=== PATIENT | male | born 1990 | race Caucasian/White ===

== ENCOUNTER 2020-06-01 07:05 | Day surgery (SDC) | payer OTHER, SELFPAY ==
[2020-06-01] VITALS (31 sets, daily range): BP systolic 127–156; BP diastolic 66–109; PULSE 72–88; RESP 16–24; TEMP 36.2–36.7; O2SAT 92–100
--- NOTE | ~2020-06-01 | XR_ITS ---
EXAMINATION: XR retrograde pyelo w/stent LT DATE: 06/01/2020 14:28 INDICATION: Left ureteral stone. TECHNIQUE: 49 intraoperative fluoroscopic views of the abdomen and pelvis were obtained. I was not pr esent. Fluoroscopy exposure time was 236 seconds. COMPARISON: None. FINDINGS: The left-sided retrograde pyelogram demonstrates mild hydronephrosis. The final images demo nstrate a left internal ureteral stent in expected position. IMPRESSION: 1. Left internal ureteral stent in expected position. Reviewed, dictated and finalized at location B.
--- NOTE | ~2020-06-01 | XR_ITS ---
EXAMINATION: XR abdomen/kub 1V DATE: 06/01/2020 08:49 INDICATION: Left flank pain. TECHNIQUE: A supine view of the abdomen on 2 radiographs was obtained. COMPARISON: CT abdomen and pelvis 06/01/2020 FINDINGS: There are no dilated loops of bowel. There is no visible urolithiasis. IMPRESSION: 1. No visible urolithiasis. Reviewed, dictated and finalized at location B. IMPRESSION: 1. No visible urolithiasis.
--- NOTE | ~2020-06-01 | CT_ITS ---
EXAMINATION: CT abdomen pelvis wo con DATE: 06/01/2020 08:11 INDICATION: Left flank pain. TECHNIQUE: Computed tomography (CT) of the abdomen and pelvis was performed without intravenous contr ast. Automated exposure control and iterative reconstruction technique were employed. The dose-length product was 1602.34 mGy-cm. COMPARISON: None. FINDINGS: The visualized portions of the lung bases are clear without pneumonia or pleural effusion. The heart size is normal. No pericardial effusion. The liver and gallbladder are normal. There is mil d splenomegaly measuring 13.9 cm, likely secondary to obesity. The pancreas, adrenal glands, and righ t kidney are normal. There is mild left hydronephrosis. There is a 4 mm stone in proximal left ureter . There are no dilated loops of bowel. The appendix is normal. There are no pathologically enlarged l ymph nodes. There is no free intraperitoneal fluid. There is levoscoliosis of thoracolumbar spine and dextroscoliosis of thoracic spine. IMPRESSION: 1. 4 mm stone in proximal left ureter with mild left hydronephrosis. Reviewed, dictated and finalized at location B.
--- NOTE | 2020-06-01 07:23 | ED.BACK ---
HPI - Back Pain/Injury General Chief Complaint: Back Pain/Injury Stated Complaint: l lower back pain Time Seen by Provider: 06/01/20 07:11 Source: RN notes reviewed History of Present Illness HPI Narrative: Patient presents emergency department from home for left flank pain. Patient states pain began yesterday afternoon and radiates from the left flank into his left lateral side. The pain is described as sharp and stabbing. States that he makes pain better or worse. Associate with nausea vomiting this morning. Denies any previous history of kidney stones. Denies any fevers or chills abdominal pain diarrhea. States he took no pain medication this morning Related Data Home Medications Medication Instructions Recorded Confirmed No Home Medications 06/01/20 06/01/20 Allergies Allergy/AdvReac Type Severity Reaction Status Date / Time No Known Allergies Allergy Verified 06/01/20 07:15 Review of Systems Review of Systems: Narrative: Gen.: Denies fevers or chills ENT: Denies congestion Respiratory: Denies shortness of breath or cough CV: Denies chest pain or palpitations GI: See HPI denies burning, urgency, frequency or hematuria Musculoskeletal: Denies back pain or muscle pain Neuro: Denies numbness, tingling, weakness or focal weakness Skin: Denies rash Except as documented, all other systems reviewed and negative PMFSH Past Medical History Medical History Patient denies significant medical history Social History Social History Smoking status: Never smoker Gender identity (if verbalized by the patient): Male Exam Narrative: Exam Narrative: APPEARANCE: No acute distress, nontoxic, resting in bed EYES: EOMI HEENT: Normocephalic, atraumatic, OMM RESPIRATORY: No respiratory distress Clear to auscultation bilaterally with no rhonchi wheezing or rales. CARDIOVASCULAR: Regular rate and rhythm without murmurs rubs or gallops. ABDOMINAL: Soft, nontender, nondistended, no rebound or guarding tender to palpation left flank MUSCULOSKELETAl: Moves all extremities. No clubbing, cyanosis or edema. NEURO: Awake and alert. Following commands, speech normal, no focal deficits SKIN:: Warm, dry. No rashes lesions or abrasions PSYCHIATRIC: Normal affect/mood, Course Course Emergency Course: Called and discussed with Dr. Rivero will come evaluate patient in the ED Dr Rivero came to the ED i and plans s take patient to the OR at this time Discussed with patient and family results of workup and diagnosis. Discussed need for admission. Patient and family understand and agree to current treatment plan Vital Signs Vital signs: Vital Signs Temperature 97.5 F L 06/01/20 07:16 Pulse Rate 86 06/01/20 07:16 Respiratory Rate 16 06/01/20 07:16 Blood Pressure 152/103 H 06/01/20 07:16 Pulse Oximetry 98 06/01/20 07:16 Temperature 97.5 F L 06/01/20 07:16 Pulse Rate 86 06/01/20 07:16 Respiratory Rate 16 06/01/20 07:16 Blood Pressure 140/73 06/01/20 11:01 Pulse Oximetry 96 06/01/20 11:01 MDM - Back Pain/Injury Lab Data Result diagrams: 06/01/20 07:29 06/01/20 07:29 Labs: Lab Results 06/01/20 06/01/20 06/01/20 Range/Units 07:29 07:29 07:29 WBC 10.4 H (4.5-10.0) K/mm3 RBC 4.47 L (4.6-6.20) M/mm3 Hgb 13.6 L (14.0-18.0) g/dL Hct 41.2 L (42.0-52.0) % MCV 92.2 (80-100) fl MCH 30.4 (26-34) pg MCHC 33.0 (32-36) g/dl RDW 13.3 (11.5-14.5) % Plt Count 358 (150-375) k/mm3 MPV 10.3 (7.4-10.4) fl Immature Gran % (Auto) 0.3 (0-0.5) % Neut % (Auto) 57.5 (45.5-73.1) % Lymph % (Auto) 33.5 (18.3-44.2) % [place] % (Auto) 6.6 (2.6-8.5) % Eos % (Auto) 1.2 (0-4.4) % Baso % (Auto) 0.9 (0.2-1.2) % Lymph # (Auto) 3.49 H (0.9-3.2) K/mm3 [place] # (Auto) 0.7 H (0.1-0.6) K/mm3 Eos # (Au
[2020-06-01 07:37] LABS: Basophils Absolute Auto 0.1 K/mm3 (0.0-0.1); Basophils Percent Auto 0.9 % (0.2-1.2); Eosinophils Absolute Auto 0.1 K/mm3 (0-0.3); Eosinophils Percent Auto 1.2 % (0-4.4); Hematocrit 41.2 % (42.0-52.0); Hemoglobin 13.6 g/dL (14.0-18.0); Immature Granulocyte Absolute 0.03 K/mm3 (0.00-0.031); Immature Granulocyte Percent A 0.3 % (0-0.5); Lymphocytes Absolute Auto 3.49 K/mm3 (0.9-3.2); Lymphocytes Percent Auto 33.5 % (18.3-44.2); Mean Corpuscular Hemoglobin 30.4 pg (26-34); Mean Corpuscular Volume 92.2 fl (80-100); Mean Platelet Volume 10.3 fl (7.4-10.4); Monocytes Absolute Auto 0.7 K/mm3 (0.1-0.6); Monocytes Percent Auto 6.6 % (2.6-8.5); Neutrophils Percent Auto 57.5 % (45.5-73.1); Platelet Count Result 358 k/mm3 (150-375); Red Blood Count 4.47 M/mm3 (4.6-6.20); Red Cell Distribution Width 13.3 % (11.5-14.5); White Blood Count 10.4 K/mm3 (4.5-10.0)
[2020-06-01 07:41] LABS: Add Urine Microscopic? YES; Appearance Urine Cloudy (Clear); Bilirubin Urine Negative (Negative); Blood Urine 3+ (Negative); Calcium Oxalate Crystals Urine Present /hpf; Color Urine Yellow (Yellow); Glucose Urine UA Negative (Negative); Ketones Urine Negative (Negative); Leukocyte Esterase Ur Negative LEU/UL (Negative); Mucus Urine Rare /lpf; Nitrate Urine Negative (Negative); Protein Urine 2+ mg/dL (Negative); RBC Urine >75 /hpf (0-2); Specific Grav Ur 1.029 (1.001-1.035); Squamous Epithelial Cell Urine Occasional /hpf (Few)
[2020-06-01] MEDS: ONDANSETRON INJ 4 MG/2 ML VIAL IV PUSH (07:43)
[2020-06-01] MEDS: SODIUM CHLORIDE 0.9% IV 1,000 ML 999 ML IV CONT (07:43)
[2020-06-01 07:48] LABS: Alanine Aminotransferase 20 U/L (4-50); Albumin Level 4.4 g/dL (3.5-5.1); Alkaline Phosphatase 80 U/L (38-126); Anion Gap 8 mmol/L (8-16); Aspartate Amino Transferase 22 U/L (17-59); Bilirubin,Total 0.4 mg/dL (0.2-1.3); Blood Urea Nitrogen 13 mg/dL (9-20); Calcium 9.1 mg/dL (8.4-10.2); Carbon Dioxide 25 mmol/L (22-30); Chloride 106 mmol/L (98-107); Estimated CRCL calculation 182 ml/min; Estimated Glomerular Filt Rate > 60; Glucose 115 mg/dL (75-110); Potassium 3.9 mmol/L (3.4-5.0); Sodium 139 mmol/L (137-145)
--- NOTE | 2020-06-01 08:45 | PC.NURSE ---
Pt returns to xray for a KUB film.
[2020-06-01] MEDS: MORPHINE SULFATE 4 MG/ML INJ IV PUSH (08:48)
--- NOTE | 2020-06-01 10:40 | PC.NURSE ---
Dr. Rivero at bedside for consultation.
--- NOTE | 2020-06-01 10:45 | P.HP_ITS ---
History of Present Illness History of Present Illness Consent: Risks, benefits, and alternatives have been discussed and questions answered. Patient agrees to proceed with procedure. Chief complaint: l lower back pain Narrative: Marciano Sapp is a 30 year old male Without prior significant urological history who presents to the ER with acute left renal colic. He has had, not only flank and abdominal pain, but also nausea and vomiting. Denies fevers chills or gross hematuria. CT imaging shows a noncalcified 4 mm obstructing left proximal ureteral stone Review of Systems Cardiovascular: Cardiovascular: Denies chest pain, Denies lightheadedness, Denies palpitations and Denies dyspnea Respiratory: Respiratory: Denies dyspnea Gastrointestinal: Gastrointestinal: Denies diarrhea, Denies nausea and Denies vomiting Genitourinary: Genitourinary: Denies hematuria and Denies dysuria Endocrine: Endocrine: Denies palpitations PMF Past Medical History Medical History Patient denies significant medical history Social History Social History Smoking status: Never smoker Gender identity (if verbalized by the patient): Male Meds Home Medications and Allergies Home Medications Medication Instructions Recorded Confirmed Type No Home Medications 06/01/20 06/01/20 History Allergies Allergy/AdvReac Type Severity Reaction Status Date / Time No Known Allergies Allergy Verified 06/01/20 07:15 Vital Signs Vital Signs - 24 hr 06/01/20 07:16 06/01/20 07:47 06/01/20 08:01 Temperature 97.5 F L Pulse Rate 86 Respiratory Rate 16 Blood Pressure 152/103 H 146/103 H 143/97 H Pulse Oximetry 98 97 99 06/01/20 08:27 06/01/20 08:31 06/01/20 08:48 Temperature Pulse Rate Respiratory Rate Blood Pressure 155/98 H 156/109 H 141/93 H Pulse Oximetry 99 100 98 06/01/20 09:01 Temperature Pulse Rate Respiratory Rate Blood Pressure 132/84 Pulse Oximetry 98 Exam Const: General: no acute distress Resp: Effort & Inspection: normal respiratory effort GI: Inspection: non-distended GI Palp: No abdominal tenderness and No Guarding due to palpation present (GI) Auscultation: normal bowel sounds Assessment and Plan Assessment and plan (1) Left ureteral stone: Code(s): N20.1 - Calculus of ureter Status: Acute Assessment and Plan: * Cystoscopy, left ureteroscopy with stone extraction, possible laser lithotripsy and stent placement.
--- NOTE | 2020-06-01 12:19 | PC.NURSE ---
Report to pre-op RN. States they have the consent printed for patient to sign and also will initiate the IV that was just ordered.
--- NOTE | 2020-06-01 12:46 | WPDANESEPPF ---
Anes - Initial Pre Proc Eval Procedure: Operation Date: 06/01/20 14:00 Proposed Procedures p CYSTOSCOPY,LEFT URETEROSCOPY,STONE EXTRACTION,POSSIBLE HOLMIUM LASER - Han Rivero MD Date/Time: 06/01/20 12:46 Surgeon: Han Rivero MD Pre Op Diagnosis: l lower back pain Patient Data Age: 30 Gender: M Height: 5 ft 10 in Weight: 159 kg Last Vital Signs Temp 36.7 C 06/01/20 12:38 Pulse 76 06/01/20 12:38 Resp 20 06/01/20 12:38 BP 135/71 06/01/20 12:38 Pulse Ox 97 06/01/20 12:38 Allergies Allergy/AdvReac Type Severity Reaction Status Date / Time No Known Allergies Allergy Verified 06/01/20 12:36 Home Medications Medication Instructions Recorded Confirmed Type No Home Medications 06/01/20 06/01/20 History Laboratory Tests 06/01/20 06/01/20 06/01/20 07:29 07:29 07:29 WBC 10.4 K/mm3 H K/mm3 (4.5-10.0) RBC 4.47 M/mm3 L M/mm3 (4.6-6.20) Hgb 13.6 g/dL L g/dL (14.0-18.0) Hct 41.2 % L % (42.0-52.0) MCV 92.2 fl fl (80-100) MCH 30.4 pg pg (26-34) MCHC 33.0 g/dl g/dl (32-36) RDW 13.3 % % (11.5-14.5) Plt Count 358 k/mm3 k/mm3 (150-375) MPV 10.3 fl fl (7.4-10.4) Immature Gran % (Auto) 0.3 % % (0-0.5) Neut % (Auto) 57.5 % % (45.5-73.1) Lymph % (Auto) 33.5 % % (18.3-44.2) [place] % (Auto) 6.6 % % (2.6-8.5) Eos % (Auto) 1.2 % % (0-4.4) Baso % (Auto) 0.9 % % (0.2-1.2) Lymph # (Auto) 3.49 K/mm3 H K/mm3 (0.9-3.2) [place] # (Auto) 0.7 K/mm3 H K/mm3 (0.1-0.6) Eos # (Auto) 0.1 K/mm3 K/mm3 (0-0.3) Baso # (Auto) 0.1 K/mm3 K/mm3 (0.0-0.1) Abs Immat Gran (auto) 0.03 K/mm3 K/mm3 (0.00-0.031) Absolute Neuts (auto) 6.0 K/mm3 K/mm3 (1.3-6.7) Absolute Nucleated RBC 0.0 K/mm3 K/mm3 (0.0-0.012) Nucleated RBC % 0.0 % % (0.0-0.2) Sodium 139 mmol/L mmol/L (137-145) Potassium 3.9 mmol/L mmol/L (3.4-5.0) Chloride 106 mmol/L mmol/L (98-107) Carbon Dioxide 25 mmol/L mmol/L (22-30) Anion Gap 8 mmol/L mmol/L (8-16) BUN 13 mg/dL mg/dL (9-20) Creatinine 0.80 mg/dL mg/dL (0.7-1.3) Estim Creat Clear Calc 182 ml/min ml/min Estimated GFR > 60 (59 - ) Glucose 115 mg/dL H mg/dL (75-110) Calcium 9.1 mg/dL mg/dL (8.4-10.2) Total Bilirubin 0.4 mg/dL mg/dL (0.2-1.3) AST 22 U/L U/L (17-59) ALT 20 U/L U/L (4-50) Alkaline Phosphatase 80 U/L U/L (38-126) Total Protein 8.0 g/dL g/dL (6.3-8.2) Albumin 4.4 g/dL g/dL (3.5-5.1) Urine Color Yellow (Yellow) Urine Appearance Cloudy H (Clear) Urine pH 5.0 (5.0-9.0) Ur Specific [place] 1.029 (1.001-1.035) Urine Protein 2+ mg/dL H mg/dL (Negative) Urine Glucose (UA) Negative mg/dL mg/dL (Negative) Urine Ketones Negative mg/dL mg/dL (Negative) Ur Blood (Man) 3+ H (Negative) Urine Nitrate Negative (Negative) Urine Bilirubin Negative (Negative) Urine Urobilinogen 2.0 mg/dL H mg/dL (<2.0) Leukocyte Esterase Rfl Negative GWEN/UL GWEN/UL (Negative) Urine RBC >75 /hpf H /hpf (0-2) Urine WBC 10-15 /hpf H /hpf Ur Squamous Epith Cells Occasional /hpf /hpf (Few) Calcium Oxalate Crystal Present /hpf /hpf (None) Urine Mucus Rare /lpf /lpf Patient hx anesthesia problems: none Family hx anesthesia problems: post op nausea/vomiting PMFSH Past Medical History Medical History Patient denies significant medical history Social History Social History (Reviewed 05/07
[2020-06-01] MEDS: LACTATED RINGERS 1,000 ML 30 ML IV CONT ×2 (12:55→15:01)
[2020-06-01] MEDS: ceFAZolin 3 GM/D5W 100 ML 100 ML IVPB (13:10)
[2020-06-01] MEDS: KETOROLAC 30 MG/ML VIAL (*BKC) IV PUSH (14:21)
--- NOTE | 2020-06-01 14:37 | PM.PROC ---
Procedure Note - Detailed Date of procedure: 06/01/20 Pre-op diagnosis: Left proximal ureteral stone Post-op diagnosis: same (Left proximal ureteral stricture and stone) Procedure performed: Cystoscopy, left RPG, left ureteroscopy and left ureteral stent placement. Description of procedure: Cystoscopy with 19F flexible cystoscopy - no uretral strictrure, minimal BPH and single ureteral orifice bilat. Bladder mucosa was normal. Left ureteroscopy was difficult due to stricture at left UPJ precluding passage of 7.5F flexible scope until only after dialted with ureteral balloon at 15atm. x 4 minutes. Thereafter, exhaustive ureterorenoscopy (with RPG to outline collecting system) failed to identify a stone. I placed a 4.8F ureteral stent. Will plan CT-renal in 1-2 weeks. Anesthesia: GLMA Surgeon: Han Rivero MD Estimated blood loss (mL): 0 Drains: Yes (4.8F ureteral stent) Packing: No Pathology: none sent Complications: No immediate complications Condition: stable Disposition: PACU
== END 2020-06-01 16:27 | disposition home or self-care (01) ==
LOC: ANHED 07:54 → ANHSURGERY 10:45
PROVIDERS: Emergency Provider Emergency Medicine; Visit Provider Urology
PROC: (CPT 52352; principal; 2020-06-01 14:00)
DX: N20.1 Calculus of ureter (principal); Q62.11 Congenital occlusion of ureteropelvic junction
CPT/HCPCS: 52345; 36415; 74018; 74176; 74420; 80053; 81001; 85025; 87086; 87088; A9270; C1726; C1769; C2617; J0131; J0690; J1885; J2250; J2270; J2405; J2704; J3010; J7030; J7120; Q9966

== ENCOUNTER 2020-06-09 16:35 | Outpatient (CLI) | payer OTHER, SELFPAY ==
--- NOTE | ~2020-06-09 | CT_ITS ---
EXAMINATION: CT abdomen pelvis wo con DATE: 06/09/2020 17:19 INDICATION: Left ureteral stone TECHNIQUE: Computed tomography (CT) of the abdomen and pelvis was performed without intravenous contr ast. Automated exposure control and iterative reconstruction technique were employed. Exam dose: 155 5.55 mGy-cm total exam DLP. COMPARISON: 06/01/[address] abdomen pelvis FINDINGS: The right subareolar area is included in this examination, revealing gynecomastia. The lung bases are clear of infiltrate or consolidation. No pericardial or pleural effusion. A 1 the liver, gallbladder, bile ducts, spleen, pancreas, pancreatic duct and adrenal glands are unre markable. The right kidney is unremarkable. There is a left internal urinary stent in expected position. There is an approximately 3.5 x 6 mm non obstructing mid to upper posterolateral left renal calculus. The urinary bladder and prostate gland and seminal vesicles are unremarkable. Normal caliber of the abdominal aorta. No intraperitoneal or retroperitoneal or pelvic mass lesion or adenopathy or ascites. No bowel obstruction, bowel wall thickening, pneumatosis or intraperitoneal free air is detected. There is a small fat-containing umbilical hernia. There is severe thoracolumbar scoliosis. No suspicious osteolytic or osteoblastic lesions are noted. Probable small bone island of the right iliac crest. Probable bone islands in the proximal left femur , right pubic and ischial bones. IMPRESSION: Left internal urinary stent 3.5 x 6 mm obstructing mid to upper left renal calculus. Reviewed, dictated and finalized at Location A. Reviewed, dictated and finalized at location A.
== END 2020-06-09 16:36 | disposition home or self-care (01) ==
PROVIDERS: Visit Provider Urology
DX: N20.1 Calculus of ureter (principal)
CPT/HCPCS: 74176

== ENCOUNTER 2020-06-23 14:53 | Outpatient (CLI) | payer OTHER, SELFPAY ==
[2020-06-23 16:07] LABS: INR 1.1; Prothrombin Time 13.5 Seconds (11.1-14.7)
[2020-06-23 16:08] LABS: Partial Thromboplastin Time 30.7 SECONDS (22.3-36.8)
== END 2020-06-23 14:54 | disposition home or self-care (01) ==
PROVIDERS: Visit Provider Urology
DX: Z01.818 Encounter for other preprocedural examination (principal); N20.1 Calculus of ureter
CPT/HCPCS: 36415; 85610; 85730; 87086

== ENCOUNTER 2020-06-28 02:53 | Outpatient (CLI) | payer OTHER, SELFPAY ==
[2020-06-28 18:40] LABS: SARS-CoV-2 RNA PCR Negative
== END 2020-06-28 02:54 | disposition home or self-care (01) ==
LOC: ANHCOVIDDT 02:54
PROVIDERS: Visit Provider Urology
DX: Z01.812 Encounter for preprocedural laboratory examination (principal); Z20.828 Contact with and (suspected) exposure to other viral communicable diseases
CPT/HCPCS: 87635; C9803; U0003

== ENCOUNTER 2020-06-30 01:07 | Day surgery (SDC) | payer OTHER, SELFPAY ==
[2020-06-22 14:51] VITALS: BMI 43.2
--- NOTE | 2020-06-26 07:25 | P.HP_ITS ---
History of Present Illness History of Present Illness Consent: Risks, benefits, and alternatives have been discussed and questions answered. Patient agrees to proceed with procedure. Chief complaint: Left Renal Stone Narrative: Marciano Sapp is a 30 year old male who recently presented with a left proximal ureteral stone. He underwent cystoscopy and left ureteral stent placement. At that time, because of the proximity of the stone in the left lower pole calyx time ureteroscopy, endoscopic stone extraction could not be undertaken. He now presents for definitive ESWL and stent removal. Review of Systems Cardiovascular: Cardiovascular: Denies chest pain, Denies lightheadedness, Denies palpitations and Denies dyspnea Respiratory: Respiratory: Denies dyspnea Gastrointestinal: Gastrointestinal: Denies diarrhea, Denies nausea and Denies vomiting Genitourinary: Genitourinary: Denies hematuria and Denies dysuria Endocrine: Endocrine: Denies palpitations PMFSH Past Medical History Medical History Patient denies significant medical history Social History Social History Smoking status: Never smoker Gender identity (if verbalized by the patient): Male Spiritual care concerns: No Meds Home Medications and Allergies Home Medications Medication Instructions Recorded Confirmed Type hydrocodone-acetaminophen 1 - 2 tablet PO Q6H PRN #20 tablet 06/01/20 06/22/20 Rx Allergies Allergy/AdvReac Type Severity Reaction Status Date / Time No Known Allergies Allergy Verified 06/22/20 14:52 Exam Const: General: no acute distress Resp: Effort & Inspection: normal respiratory effort GI: Inspection: non-distended GI Palp: No abdominal tenderness and No Guarding due to palpation present (GI) Auscultation: normal bowel sounds Assessment and Plan Assessment and plan (1) Left renal stone: Code(s): N20.0 - Calculus of kidney Status: Acute Assessment and Plan: * Cystoscopy, left ESWL.
[2020-06-30] VITALS (7 sets, daily range): BP systolic 115–139; BP diastolic 76–99; PULSE 75–94; RESP 16–22; TEMP 36.6–36.8; O2SAT 98–100
--- NOTE | ~2020-06-30 | XR_ITS ---
XR abdomen/kub 1V 06/30/2020 06:59 Indication: Left renal stone. Procedure: KUB Comparison: 06/01/2020 Findings: Small 2-3 mm upper pole stone in the left kidney. Left internal ureteral stent in expected position. Bowel pattern nonobstructive. There is scoliosis. Impression: 1: Left nephrolithiasis. Reviewed, dictated and finalized at location A. Impression: 1: Left nephrolithiasis.
--- NOTE | 2020-06-30 06:44 | WPDHPUPDATE1 ---
History and Physical Update Update Date/Time: 06/30/20 06:44 History and Physical has been reviewed, including an updated exam of the patient. There are NO changes in the patient's condition. Risks, benefits, and alternatives have been discussed and questions answered. Patient agrees to proceed with procedure.
[2020-06-30] MEDS: LACTATED RINGERS 1,000 ML 30 ML IV CONT (07:20)
--- NOTE | 2020-06-30 07:48 | WPDANESEPPF ---
Anes - Initial Pre Proc Eval Procedure: Operation Date: 06/30/20 08:30 Proposed Procedures p Left Renal Extracorporeal Shock Wave Lithotripsy, Left Stent Removal - Han Rivero MD Date/Time: 06/30/20 07:48 Surgeon: Han Rivero MD Pre Op Diagnosis: Left Renal Stone Patient Data Age: 30 Gender: M Height: 5 ft 11 in Weight: 140.61 kg Allergies Allergy/AdvReac Type Severity Reaction Status Date / Time No Known Allergies Allergy Verified 06/22/20 14:52 Home Medications Medication Instructions Recorded Confirmed Type hydrocodone-acetaminophen 1 - 2 tablet PO Q6H PRN #20 tablet 06/01/20 06/22/20 Rx Patient hx anesthesia problems: none Family hx anesthesia problems: none PMFSH Past Medical History Medical History (Updated 06/30/20 @ 07:48 by Jonathan Carcamo MD) Morbid obesity Patient denies significant medical history Social History Social History Smoking status: Never smoker Gender identity (if verbalized by the patient): Male Spiritual care concerns: No Anes - Eval Final PreProcedure Day of Procedure 06/30/20 07:48 Patient weight: morbidly obese Heart: regular rate and rhythm Lungs: clear to auscultation Airway: Mallampati scale class II Neurological: alert and oriented Last oral intake: >/= 8 hours ASA classification: III Emergent: no Anesthetic plan: proceed Anesthesia type and monitoring: general LMA and standard monitoring Informed Consent: The patient's anesthetic plan and its attendant risks and benefits were discussed with the patient/family/POA. Questions were solicited and answers provided to the satisfaction of the patient/family/POA.
[2020-06-30] MEDS: ceFAZolin 3 GM/D5W 100 ML 100 ML IVPB (08:13)
--- NOTE | 2020-06-30 09:02 | P.OP_ITS ---
Procedure Note - Detailed Date of procedure: 06/30/20 Pre-op diagnosis: Left Renal Stone Post-op diagnosis: same Procedure performed: 1. Cysto., left stent removal. 2. Left ESWL. Description of procedure: The patient was brought to the operative suite where he was placed in the supine position on the Dornier lithotripter table. Flexible cystoscopy was undertaken with a 16F flexible cystoscopy. There were no urethral strictures. The prostatic uretehra estimated length was 1.5cm. There was no obstruction of the prostatic urethra with no median lobe enlargement. The bladder mucosa was normal and there was a single, orthotopic u reteral orifice bilaterally. The tip of the indwelling stent was grasped and it was removed with ease. The patient was then repositioned in the supine position with the focal point of the lithotriptor on a 5mm left renall calculus. A total of 2500 shocks were delivered at a power setting of 4. There appeared to be good fragmentation of the stone. The patient tolerated the procedure well and w as taken to the recovery room in good condition. Anesthesia: GLMA Surgeon: Han Rivero MD Drains: No Packing: No Pathology: none sent Complications: No immediate complications Condition: stable Disposition: PACU
== END 2020-06-30 10:46 | disposition home or self-care (01) ==
PROVIDERS: Visit Provider Urology
PROC: (CPT 50590; principal; 2020-06-30 08:30)
DX: N20.0 Calculus of kidney (principal); E66.01 Morbid (severe) obesity due to excess calories; Z68.42 Body mass index [BMI] 45.0-49.9, adult
CPT/HCPCS: 52310; 50590; 74018; A9270; J0131; J0690; J1100; J2250; J2405; J2704; J3010; J7120

== ENCOUNTER → 2020-07-11 12:27 | Outpatient (CLI) | payer OTHER, SELFPAY ==
--- NOTE | ~2020-07-11 | XR_ITS ---
EXAMINATION: XR abdomen/kub 1V INDICATION: Left ureteral stone TECHNIQUE: Supine views of the abdomen were obtained on 2 radiographs. COMPARISON: 06/30/2020 FINDINGS: The left internal ureteral stent has been removed. There is an unchanged 3 mm stone of the left kidney upper pole. No additional urolithiasis is identified. A moderate volume of colonic stool is present. The bowel gas pattern is normal. There is levoscoliosis of the thoracolumbar spine. IMPRESSION: 1. Unchanged left nephrolithiasis. 2. Left internal ureteral stent removed. Reviewed, dictated and finalized at location A.
== END ==
PROVIDERS: Visit Provider Urology
DX: N20.1 Calculus of ureter (principal)
CPT/HCPCS: 74018

== ENCOUNTER 2021-04-15 17:05 | Emergency (ER) | payer OTHER, SELFPAY ==
[2021-04-15] VITALS (11 sets, daily range): BP systolic 121–147; BP diastolic 67–93; PULSE 106–117; RESP 16–32; TEMP 37.3–38.7; O2SAT 95–99
--- NOTE | ~2021-04-15 | CT_ITS ---
EXAMINATION: CT abdomen pelvis w con DATE: 04/15/2021 21:07 INDICATION: Abdominal pain TECHNIQUE: Computed tomography (CT) of the abdomen and pelvis was performed with 100 cc Omnipaque 350 intravenous contrast. The dose-length product was 1481.71 mGy-cm. Automated exposure control and ite rative reconstruction technique were employed. COMPARISON: CT dated 06/09/2020 FINDINGS: Lung bases are unremarkable. Heart size is normal no significant pleural or pericardial eff usion. There is scoliosis. No significant vascular abnormality. No lymphadenopathy. There is splenomegaly. The liver, pancreas, adrenal glands and kidneys are unremarkable. Ureters are normal in course and caliber. Bladder is unremarkable. Gallbladder is present. Nonobstructive bowel g as pattern. Normal appendix. No evidence for diverticulitis. No free air or free fluid. IMPRESSION: 1. Splenomegaly. Reviewed, dictated and finalized at location A. IMPRESSION: 1. Splenomegaly.
[2021-04-15 17:28] LABS: Basophils Absolute Auto 0.1 K/mm3 (0.0-0.1); Basophils Percent Auto 0.4 % (0.2-1.2); Eosinophils Percent Auto 0.1 % (0-4.4); Hematocrit 44.1 % (42.0-52.0); Hemoglobin 14.4 g/dL (14.0-18.0); Immature Granulocyte Absolute 0.05 K/mm3 (0.00-0.031); Immature Granulocyte Percent A 0.4 % (0-0.5); Lymphocytes Absolute Auto 1.11 K/mm3 (0.9-3.2); Mean Corpuscular HGB Conc 32.7 g/dl (32-36); Mean Corpuscular Hemoglobin 30.6 pg (26-34); Mean Corpuscular Volume 93.6 fl (80-100); Mean Platelet Volume 9.9 fl (7.4-10.4); Monocytes Absolute Auto 0.7 K/mm3 (0.1-0.6); Monocytes Percent Auto 5.1 % (2.6-8.5); Neutrophils Absolute Auto 11.9 K/mm3 (1.3-6.7); Platelet Count Result 243 k/mm3 (150-375); Red Blood Count 4.71 M/mm3 (4.6-6.20); Red Cell Distribution Width 13.3 % (11.5-14.5); White Blood Count 13.9 K/mm3 (4.5-10.0)
[2021-04-15 17:51] LABS: Alanine Aminotransferase 29 U/L (4-50); Albumin Level 4.9 g/dL (3.5-5.1); Alkaline Phosphatase 94 U/L (38-126); Anion Gap 7 mmol/L (8-16); Aspartate Amino Transferase 29 U/L (17-59); Bilirubin,Total 0.6 mg/dL (0.2-1.3); Blood Urea Nitrogen 12 mg/dL (9-20); Calcium 9.9 mg/dL (8.4-10.2); Carbon Dioxide 29 mmol/L (22-30); Chloride 104 mmol/L (98-107); Estimated CRCL calculation 145 ml/min; Estimated Glomerular Filt Rate > 60; Glucose 98 mg/dL (75-110); Lipase 91 U/L (23-300); Potassium 4.1 mmol/L (3.4-5.0); Sodium 140 mmol/L (137-145)
--- NOTE | 2021-04-15 20:49 | ED.GENADULT ---
HPI - General Adult General Chief complaint: Abdominal Pain Stated complaint: ABD PAIN Time Seen by Provider: 04/15/21 20:46 Source: RN notes reviewed History of Present Illness HPI narrative: Patient presents emergency department from home for abdominal pain. Patient states pain began approximately 3 AM today. The pain is located across the bilateral upper abdomen described as sharp and stabbing in nature. States associated with fever at home he denies any chest pain, shortness of breath, nausea, vomiting, diarrhea or any other symptoms states he last took Tylenol approximately 2 PM today 1000 mg. Patient does state he noted a small amount of bright red blood in his stool earlier today states he does have a history of a hemorrhoid he does have blood in the stool occasionally Related Data Allergies Allergy/AdvReac Type Severity Reaction Status Date / Time No Known Allergies Allergy Verified 04/15/21 17:14 Review of Systems Review of Systems: Narrative: Gen.: Denies fevers or chills ENT: Denies congestion Respiratory: Denies shortness of breath or cough CV: Denies chest pain or palpitations GI: HPI denies burning, urgency, frequency or hematuria Musculoskeletal: Denies back pain or muscle pain Neuro: Denies numbness, tingling, weakness or focal weakness Skin: Denies rash Except as documented, all other systems reviewed and negative PMFSH Past Medical History Medical History Morbid obesity Patient denies significant medical history Social History Social History Smoking status: Never smoker Gender identity (if verbalized by the patient): Male Spiritual care concerns: No Exam Narrative: Exam Narrative: APPEARANCE: No acute distress, nontoxic, resting in bed HEENT: Normocephalic, atraumatic, OMM RESPIRATORY: No respiratory distress, clear to auscultation bilaterally with no rhonchi wheezing or rales CARDIOVASCULAR: RRR s murmur ABDOMINAL: Soft nondistended tender palpation epigastric and right upper quadrant left upper quadrant no tenderness right lower quadrant left lower quadrant no rebound or guarding Rectal: Hemorrhoid in the 6 o'clock position no active bleeding seen white brown stool present that is Hemoccult positive MUSCULOSKELETAl: Moves all extremities. No clubbing, cyanosis or edema. NEURO: Awake and alert. Following commands, speech normal, no focal deficits SKIN:: Warm, dry. Normal Color PSYCHIATRIC: Normal affect/mood Course Course Emergency Course: Called discussed with Dr. Rueda for GI presentation work-up. This time recommends patient be started on Cipro and Flagyl may be discharged to follow-up as an outpatient Patient states that they are feeling much better at this time. States abdominal pain has resolved. Repeat abdominal exam shows the patient's abdomen to be soft and nontender. Discussed with patient results of workup and diagnosis. Discussed need for follow-up with primary care physician, reasons to return to the emergency department in proper use of medication. Patient understands and agrees to current treatment plan Vital Signs Vital signs: Vital Signs Temperature 99.1 F 04/15/21 17:15 Pulse Rate 117 H 04/15/21 17:15 Respiratory Rate 18 04/15/21 17:15 Blood Pressure 147/93 H 04/15/21 17:15 Pulse Oximetry 97 04/15/21 17:15 Temperature 99.4 F 04/15/21 23:17 Pulse Rate 109 H 04/15/21 22:32 Respiratory Rate 21 H 04/15/21 22:32 Blood Pressure 121/79 04/15/21 22:32 Pulse Oximetry 97 04/15/21 22:32 Medical Decision Making MDM Narrative Medical decision making narrative: Patient's abdomen is soft without significant pain or signs of surgical abdomen on serial exams. Lab and x-ray evaluations are reviewed and patient is felt to be a reasonable candidate for outpatient management. Patient was instructed as to limitations of x-ray and laboratory eval
[2021-04-15] MEDS: KETOROLAC 30 MG/ML VIAL (*BKC) IV PUSH (21:31)
[2021-04-15] MEDS: SODIUM CHLORIDE 0.9% IV 1,000 ML 999 ML IV CONT (21:32)
[2021-04-15 22:21] LABS: Lactic Acid Reflex 0.8 mmol/L (0.7-2.1)
[2021-04-15 22:58] LABS: Add Urine Microscopic? YES; Appearance Urine Clear (Clear); Bilirubin Urine Negative (Negative); Blood Urine Negative (Negative); Color Urine Yellow (Yellow); Glucose Urine UA Negative (Negative); Ketones Urine Negative (Negative); Leukocyte Esterase Ur Negative LEU/UL (Negative); Nitrate Urine Negative (Negative); Protein Urine Negative (Negative); RBC Urine 0-2 /hpf (0-2); WBC Urine 0-3 /hpf
[2021-04-15 23:20] LABS: Specific Grav Ur 1.056 (1.001-1.035)
[2021-04-16] MEDS: SODIUM CHLORIDE 0.9% IV 1,000 ML 999 ML IV CONT (00:03)
[2021-04-16 01:48] VITALS: BP 128/75; PULSE 90; RESP 15; O2SAT 99
[2021-04-16 02:01] VITALS: BP 150/94; PULSE 98; RESP 20; O2SAT 99
[2021-04-16] MEDS: metroNIDAZOLE 250 MG TABLET 500 MG PO (02:03)
[2021-04-16] MEDS: CIPROFLOXACIN 500 MG TAB PO (02:03)
[2021-04-16 02:15] VITALS: BP 150/94; PULSE 95; RESP 15; O2SAT 100
--- NOTE | 2021-04-16 03:18 | PC.NURSE ---
pt d/c while this RN with another ptl
== END 2021-04-16 02:16 | disposition home or self-care (01) ==
PROVIDERS: Emergency Medicine; Emergency Provider Emergency Medicine
DX: R10.12 Left upper quadrant pain (principal); R10.11 Right upper quadrant pain; K62.5 Hemorrhage of anus and rectum; E66.01 Morbid (severe) obesity due to excess calories; Z68.41 Body mass index [BMI] 40.0-44.9, adult; R16.1 Splenomegaly, not elsewhere classified
CPT/HCPCS: 36415; 74177; 80053; 81001; 83605; 83690; 85025; 87040; 96361; 96374; 99284; A9270; J1885; J7030; Q9967

== ENCOUNTER 2021-05-25 05:10 | Day surgery (SDC) | payer OTHER, SELFPAY ==
[2021-05-16 14:02] VITALS: BMI 50.3
[2021-05-25 07:32] VITALS: BP 132/92; PULSE 84; RESP 20; TEMP 36.4; O2SAT 98
--- NOTE | 2021-05-25 07:35 | WPDANESEPPF ---
Anes - Initial Pre Proc Eval Procedure: Operation Date: 05/25/21 08:45 Proposed Procedures p Colonoscopy - Rakesh Lambert MD Date/Time: 05/25/21 07:35 Surgeon: Rakesh Lambert MD Pre Op Diagnosis: rectal bleeding, abdominal pain Patient Data Age: 31 Gender: M Height: 1.78 m Weight: 159 kg Allergies Allergy/AdvReac Type Severity Reaction Status Date / Time No Known Allergies Allergy Verified 05/25/21 07:44 Home Medications Medication Instructions Recorded Confirmed Type No Home Medications 05/16/21 05/16/21 History Patient hx anesthesia problems: none Family hx anesthesia problems: none PMFSH Past Medical History Medical History (Updated 05/25/21 @ 07:36 by Darnell Zapata MD) Asthma BRBPR (bright red blood per rectum) Depression Left ureteral stone Morbid obesity Patient denies significant medical history Social History Social History Smoking status: Never smoker Living arrangements: alone Gender identity (if verbalized by the patient): Male Spiritual care concerns: No Anes - Eval Final PreProcedure Day of Procedure 05/25/21 07:35 Patient weight: super morbidly obese Heart: regular rate and rhythm Lungs: clear to auscultation and normal air movement Airway: Mallampati scale class II Neurological: alert and oriented Last oral intake: >/= 8 hours ASA classification: III Emergent: no Anesthetic plan: proceed Anesthesia type and monitoring: general GIVS Informed Consent: The patient's anesthetic plan and its attendant risks and benefits were discussed with the patient/family/POA. Questions were solicited and answers provided to the satisfaction of the patient/family/POA.
[2021-05-25] MEDS: LACTATED RINGERS 1,000 ML 150 ML IV CONT (07:55)
--- NOTE | 2021-05-25 08:38 | PM.HPGS ---
History of Present Illness History of Present Illness Consent: Risks, benefits, and alternatives have been discussed and questions answered. Patient agrees to proceed with procedure. Chief complaint: rectal bleeding, abdominal pain Narrative: Marciano Sapp is a 31 year old male with intermittent rectal bleeding using preparation H as needed but never had colonoscopy Review of Systems Constitutional: Constitutional: Denies headache(s) and Denies weakness Eyes: Eyes: Denies blurry vision ENT: Reports Normal hearing present, Denies headache(s) and Denies neck pain Cardiovascular: Cardiovascular: Denies chest pain and Denies dyspnea Respiratory: Respiratory: Denies dyspnea Gastrointestinal: Gastrointestinal: Reports no additional gastrointestinal complaints Genitourinary: Genitourinary: Denies dysuria Musculoskeletal: Musculoskeletal: Denies neck pain Integumentary/Breasts: Skin/Breast: Denies dry skin Neurologic: Reports Normal hearing present, Denies headache(s) and Denies weakness Psychiatric: Psychiatric: Denies anxiety Endocrine: Endocrine: Denies change in body appearance Hematologic/Lymphatic: Hematologic/Lymphatic: Denies easy bleeding Allergic/Immunologic: Allergic/Immunologic: Denies urticaria PMFSH Past Medical History Medical History (Updated 05/25/21 @ 08:39 by Rakesh Lambert MD) Asthma Blood in stool BRBPR (bright red blood per rectum) Depression Left ureteral stone Morbid obesity Patient denies significant medical history Social History Social History Smoking status: Never smoker Living arrangements: alone Gender identity (if verbalized by the patient): Male Spiritual care concerns: No Meds Home Medications and Allergies Home Medications Medication Instructions Recorded Confirmed Type No Home Medications 05/16/21 05/16/21 History Allergies Allergy/AdvReac Type Severity Reaction Status Date / Time No Known Allergies Allergy Verified 05/25/21 07:44 Vital Signs Vital Signs - 24 hr 05/25/21 07:32 Temperature 97.5 F L Pulse Rate 84 Respiratory Rate 20 Blood Pressure 132/92 H Pulse Oximetry 98 Exam Const: General: comfortable and no acute distress HENMT: General nose exam: Normal nares present Eyes: General: appearance normal, both eyes and all related structures Neck: Neck: no JVD Resp: Auscultation: clear to auscultation bilaterally Cardio: Rate: regular rate Rhythm: regular rhythm GI: Inspection: non-distended GI Palp: Yes Soft to palpation Skin: General skin exam: normal color Neuro: General: gait normal Speech: normal speech Extrem: General: normal to inspection Psych: Mental Status: mental status grossly normal Assessment and Plan Assessment and plan (1) Blood in stool: Code(s): K92.1 - Melena Status: Acute Assessment and Plan: probably perianal but needs a colonoscopy
[2021-05-25 09:00] VITALS: BP 120/83; PULSE 78; RESP 23; O2SAT 100
[2021-05-25 09:10] VITALS: BP 127/90; PULSE 81; RESP 23; O2SAT 100
[2021-05-25 09:20] VITALS: BP 134/93; PULSE 75; RESP 19; O2SAT 100
--- NOTE | 2021-05-25 09:36 | SUR.PHASEII ---
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
== END 2021-05-25 09:45 | disposition home or self-care (01) ==
PROVIDERS: Visit Provider Internal Medicine Gastroenterology
PROC: 0DJD8ZZ Inspection of Lower Intestinal Tract, Via Natural or Artificial Opening Endoscopic (ICD-10-PCS; CPT 45378; principal; 2021-05-25 08:45)
DX: K62.5 Hemorrhage of anus and rectum (principal); K64.8 Other hemorrhoids; J45.909 Unspecified asthma, uncomplicated; E66.01 Morbid (severe) obesity due to excess calories; F32.9 Major depressive disorder, single episode, unspecified
CPT/HCPCS: 45378; J2704; J7120

== ENCOUNTER 2023-03-12 01:51 | Inpatient (IN) | payer OTHER, SELFPAY ==
--- NOTE | ~2023-03-12 | XR_ITS ---
EXAMINATION: XR surgery orthopedic DATE: 03/17/2023 11:15 CDT INDICATION: ORIF LT ANKLE . TECHNIQUE: 3 fluoroscopic images of the left ankle were obtained during ORIF left ankle performed by the surgeon. I was not present in the operating room. Fluoroscopy exposure time was 110.4 seconds. r Kerma 6.46 mGy. DAP 0.02821 mGym2. COMPARISON: 03/12/2023 FINDINGS: Intramedullary rigo fixation of the distal fibula with distal interlocking screws. Fixation of the dis adelia syndesmosis. Cannulated screw fixation of the medial malleolus. IMPRESSION: Fluoroscopic documentation of ORIF left ankle. Please refer to the operative note for complete proced ural details . Reviewed, dictated and finalized at location K. IMPRESSION: Fluoroscopic documentation of ORIF left ankle. Please refer to the operative no te for complete procedural details .
--- NOTE | ~2023-03-12 | XR_ITS ---
Left ankle Technique: AP, oblique, and lateral views were obtained. Clinical History: Fracture, post reduction COMPARISON: 03/12/2023 at 2:10 AM Findings: Patient is undergone interval closed reduction and casting of the left ankle. Oblique fract ure of the distal fibula demonstrates significantly improved alignment, now near anatomic. There is h owever probable mild worsening alignment of the medial malleolus fracture with mildly increased displ acement. There is also widening of the medial aspect of the ankle report T7 the current exam, which i s significantly worse as compared to prior exam. Soft tissue swelling again noted. Impression: Status post closed reduction and casting of the left ankle. Improved alignment of the distal fibular fracture, without new anatomic alignment. Worsened alignment of the medial malleolus fracture, with new abnormal widening of the medial aspect of the ankle mortise. Reviewed, dictated and finalized at [facility]. Impression: Status post closed reduction and casting of the left ankle. Improved alignment of the distal fibular fracture, without new anatomic alignme nt. Worsened alignment of the medial malleolus fracture, with new abnormal widening of the medial aspect of the ankle mortise.
--- NOTE | ~2023-03-12 | XR_ITS ---
Left ankle Technique: AP, oblique, and lateral views were obtained. Clinical History: Pain Findings: There is an oblique, traumatic fracture of the distal fibula, extending from the ankle mort ise level approximately, best seen on lateral view. Fracture is mildly displaced. There is also obliq ue traumatic minimally displaced fracture of the base the medial malleolus. Alignment of the ankle mo rtise remains near anatomic.. Probable mild diffuse soft tissue swelling. Impression: Bimalleolar fractures, as detailed above. Diffuse soft tissue swelling. Reviewed, dictated and finalized at location M. Impression: Bimalleolar fractures, as detailed above. Diffuse soft tissue swelling.
[2023-03-12 02:03] VITALS: BP 139/84; PULSE 101; RESP 14; TEMP 36.6; O2SAT 99
--- NOTE | 2023-03-12 02:23 | ED.GENADULT ---
HPI - General Adult General Chief complaint: Extremity Injury, Lower Stated complaint: L ANKLE FX? Time Seen by Provider: 03/12/23 02:09 History of Present Illness HPI narrative: A 32-year-old male presenting with left ankle pain. He was walking through his bathroom when he slipped on his puppy pad. He then had pain in his left ankle and has been unable to bear weight. He denies other injuries. Related Data Home Medications Medication Instructions Recorded Confirmed No Home Medications 05/16/21 05/16/21 Allergies Allergy/AdvReac Type Severity Reaction Status Date / Time No Known Allergies Allergy Verified 05/25/21 07:44 [facility] Past Medical History Medical History (Updated 03/12/23 @ 04:18 by Baldev Foley MD) Asthma Blood in stool BRBPR (bright red blood per rectum) Depression Left ureteral stone Morbid obesity Patient denies significant medical history Social History Social History Smoking status: Never smoker Living arrangements: alone Gender identity (if verbalized by the patient): Male Spiritual care concerns: No Exam Narrative: APPEARANCE: No apparent distress. obese Head: atraumatic. EYES: EOMI, NOSE: Atraumatic NECK: Trachea midline RESPIRATORY: No increased rate of breathing CARDIOVASCULAR: RRR, ABDOMINAL: Non-distended MUSCULOSKELETAl: Tenderness to palpation over the lateral malleolus, pulses palpable, motor function intact, cap refill less than 2 seconds, difficult to determine edema due to body habitus NEURO: Alert. Moving 4/4 extremities SKIN:: Warm, dry. Normal color PSYCHIATRIC: Normal affect Course Vital Signs Vital signs: Vital Signs Temperature 97.9 F 03/12/23 02:03 Pulse Rate 101 H 03/12/23 02:03 Respiratory Rate 14 03/12/23 02:03 Blood Pressure 139/84 03/12/23 02:03 Pulse Oximetry 99 03/12/23 02:03 Temperature 97.9 F 03/12/23 02:03 Pulse Rate 101 H 03/12/23 02:03 Respiratory Rate 14 03/12/23 02:03 Blood Pressure 139/84 03/12/23 02:03 Pulse Oximetry 99 03/12/23 02:03 Medical Decision Making MDM Narrative Medical decision making narrative: -Presentation: 32-year-old male presenting with left ankle pain -DDX includes but is not limited to: ankle strain, ankle fracture -Co-morbidities complicating care: morbid obesity -Social determinants of health: 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 Dx tests considered but not ordered: None -Procedures: Reduction difficult due to body habitus. Posterior mold w/ stirrups splint. -Interventions: [place] 5mg x2, Motrin, -Shared decision making / Disposition: Patient is over 400 lb and cannot use crutches. Patient will be admitted for eval by PT OT for possible rehab placement. -RX Vital Signs Vital Signs: Vital Signs Temperature 97.9 F 03/12/23 02:03 Pulse Rate 101 H 03/12/23 02:03 Respiratory Rate 14 03/12/23 02:03 Blood Pressure 139/84 03/12/23 02:03 Pulse Oximetry 99 03/12/23 02:03 Temperature 97.9 F 03/12/23 02:03 Pulse Rate 101 H 03/12/23 02:03 Respiratory Rate 14 03/12/23 02:03 Blood Pressure 139/84 03/12/23 02:03 Pulse Oximetry 99 03/12/23 02:03 Discharge Plan Discharge Clinical Impression: Ankle fracture, bimalleolar, closed Patient Disposition: Still a Patient Condition: Stable Prescriptions: No Action No Home Medications Follow-up/Referrals: PHYSICIAN,SPECIAL NEEDS LIBRARIAN [Primary Care Provider] -
[2023-03-12] MEDS: HYDROcodone/acetaminophen (*CRX) 5-325 MG TABLET 1 TAB PO ×2 (02:39→02:49)
[2023-03-12] MEDS: IBUPROFEN 400 MG TABLET 800 MG PO (02:49)
--- NOTE | 2023-03-12 04:17 | PC.NURSE ---
available crutches only support a maximum weight of 300 lbs. no crutches available to support pt. weight. cannot safely crutch train pt. made aware.
[2023-03-12 04:18] VITALS: BP 139/92; PULSE 101; RESP 14; O2SAT 97
--- NOTE | 2023-03-12 04:52 | PM.IMHP ---
H&P: HPI History of Present Illness Date/Time: 03/12/23 04:52 Chief Complaint: Fall Narrative: This is a 32-year-old male with past medical history significant for asthmatic bronchitis, morbid obesity, kidney stone. Patient presents to the emergency room after he had a mechanical fall ground level landed on his left leg unable to bear weight on it there was no loss of consciousness. Found to have a left ankle fracture status post reduction, patient is unable to bear weight on his left leg and unable to use crutches. Review of Systems Review of Systems: Fall, left ankle fracture Constitutional: Constitutional: Denies chills, Denies fatigue, Denies fever(s), Denies frequent falls, Denies malaise and Denies weakness Eyes: Eyes: Denies change in vision ENT: Denies dysphagia, Denies vertigo, Denies dizziness and Denies odynophagia Cardiovascular: Cardiovascular: Denies chest pain, Denies radiating jaw, neck or arm pain and Denies palpitations Respiratory: Respiratory: Denies chest congestion, Denies cough, Denies excessive phlegm production and Denies dyspnea Gastrointestinal: Gastrointestinal: Denies abdominal pain, Denies dyspepsia, Denies heartburn, Denies diarrhea, Denies nausea and Denies vomiting Genitourinary: Genitourinary: Denies dysuria Musculoskeletal: Musculoskeletal: Reports arthralgias and Reports limited range of motion Integumentary/Breasts: Skin/Breast: Denies rash Neurologic: Denies focal weakness and Denies Sensory deficit (Neuro) Psychiatric: Psychiatric: Reports no additional psychiatric complaints and Reports as per HPI Endocrine: Endocrine: Denies cold intolerance, Denies flushing, Denies heat intolerance, Denies polyphagia, Denies polydipsia and Denies palpitations Hematologic/Lymphatic: Hematologic/Lymphatic: Reports no additional hematologic/lymphatic complaints and Reports as per HPI Allergic/Immunologic: Allergic/Immunologic: Reports no additional allergic/immunologic complaints and Reports as per HPI PMFSH Past Medical History Medical History (Updated 03/12/23 @ 05:41 by Romero Almanza MD) Asthma Blood in stool BRBPR (bright red blood per rectum) Depression Left ureteral stone Morbid obesity Patient denies significant medical history Social History Social History Smoking status: Never smoker Living arrangements: alone Gender identity (if verbalized by the patient): Male Spiritual care concerns: No Meds Home Medications and Allergies Home Medications Medication Instructions Recorded Confirmed Type No Home Medications 05/16/21 03/12/23 History Allergies Allergy/AdvReac Type Severity Reaction Status Date / Time No Known Allergies Allergy Verified 05/25/21 07:44 Vital Signs Vital Signs - 24 hr 03/12/23 02:03 03/12/23 04:18 Temperature 97.9 F Pulse Rate 101 H 101 H Respiratory Rate 14 14 Blood Pressure 139/84 139/92 H Pulse Oximetry 99 97 Exam Narrative: Patient is sitting in a stretcher in semi upright position Const: General: comfortable, no acute distress, well developed, alert, awake and obese (Morbidly) Nutritional Appearance: obese morbidly obese Orientation/consciousness: patient oriented x3 Limitations: physical limitations (Left ankle fracture) HENMT: Head: normal to inspection, normocephalic and atraumatic Ears: hearing grossly normal bilaterally Face/Nose/Sinus: normal facial exam Face and sinus: normal facial exam Eyes: General: appearance normal, both eyes and all related structures Pupils: Equal, round and reactive pupils present EOM: EOMs intact bilaterally Neck: Neck: full ROM, no lymphadenopathy and no JVD Thyroid: thyroid normal Lymphatic: no lymphadenopathy noted Resp: Effort & Inspection: normal respiratory effort and able to speak in complete sentences Auscultation: clear to auscultation bilaterally Cardio: Jugular venous distension: no
[2023-03-12 05:12] VITALS: BP 136/78; PULSE 100; RESP 20; TEMP 36.8; O2SAT 98; BMI 61.3
--- NOTE | 2023-03-12 05:26 | ADMGEN ---
This patient, Marciano Sapp, was admitted to Medical Room 257-01. Patient/family oriented to hospital policies and general routines including ID bracelet, bed and alarms, visiting hours, pain management, procedures, bathroom and other care routines, personal items, smoking policy, room service/diet, and visiting hours. Information on how to activate the Rapid Response Team has been discussed. Patient/Family are encouraged to report perceived risks to care and to ask questions if they do not understand what they are told or what they should do.
[2023-03-12 06:43] LABS: Basophils Absolute Auto 0.1 K/mm3 (0.0-0.1); Basophils Percent Auto 0.6 % (0.2-1.2); Eosinophils Percent Auto 0.2 % (0-4.4); Hematocrit 40.6 % (42.0-52.0); Hemoglobin 13.2 g/dL (14.0-18.0); Immature Granulocyte Absolute 0.03 K/mm3 (0.00-0.031); Immature Granulocyte Percent A 0.3 % (0-0.5); Lymphocytes Absolute Auto 2.18 K/mm3 (0.9-3.2); Lymphocytes Percent Auto 18.9 % (18.3-44.2); Mean Corpuscular HGB Conc 32.5 g/dl (32-36); Mean Corpuscular Hemoglobin 30.6 pg (26-34); Mean Corpuscular Volume 94.2 fl (80-100); Mean Platelet Volume 9.8 fl (7.4-10.4); Monocytes Absolute Auto 0.6 K/mm3 (0.1-0.6); Monocytes Percent Auto 5.3 % (2.6-8.5); Neutrophils Absolute Auto 8.6 K/mm3 (1.3-6.7); Neutrophils Percent Auto 74.7 % (45.5-73.1); Platelet Count Result 329 k/mm3 (150-375); Red Blood Count 4.31 M/mm3 (4.6-6.20); Red Cell Distribution Width 13.6 % (11.5-14.5); White Blood Count 11.5 K/mm3 (4.5-10.0)
[2023-03-12 06:58] LABS: Alanine Aminotransferase 44 U/L (6-50); Albumin Level 3.9 g/dL (3.5-5.1); Alkaline Phosphatase 106 U/L (38-126); Anion Gap 4 mmol/L (8-16); Aspartate Amino Transferase 29 U/L (17-59); Bilirubin,Total 0.7 mg/dL (0.2-1.3); Blood Urea Nitrogen 13 mg/dL (9-20); Calcium 8.8 mg/dL (8.4-10.2); Carbon Dioxide 30 mmol/L (22-30); Chloride 105 mmol/L (98-107); Estimated CRCL calculation 208 ml/min; Estimated Glomerular Filt Rate > 60; Glucose 102 mg/dL (65-110); Potassium 3.9 mmol/L (3.4-5.0); Sodium 139 mmol/L (137-145)
--- NOTE | 2023-03-12 08:12 | PCOTNOTE ---
Awaiting orthopedic consult with weight bearing status, prior to therapy evaluation
[2023-03-12] MEDS: HYDROcodone/acetaminophen (*CRX) 5-325 MG TABLET 2 TAB PO ×3 (08:38→22:36)
--- NOTE | 2023-03-12 12:32 | PM.IMPN ---
Progress Note: A&P Assessment and Plan (1) Ankle fracture, bimalleolar, closed: Code(s): S82.843A - Displaced bimalleolar fracture of unspecified lower leg, initial encounter for closed fracture Status: Acute Assessment and Plan: Secondary to mechanical fall. Initial x-ray with by malleolar fractures. Reduced in the ED and subsequent x-ray improved alignment of distal fibular fracture and worsened alignment of the medial malleolus fracture with new abnormal widening of medial aspect. Appreciate orthopedic surgery recommendation Continue with supportive care and pain management Will need PT/OT pending Orthopedic surgery recommendations (2) Asthma: Code(s): J45.909 - Unspecified asthma, uncomplicated Status: Acute Assessment and Plan: Stable, no acute exacerbation (3) Morbid obesity with BMI of 60.0-69.9, adult: Code(s): E66.01 - Morbid (severe) obesity due to excess calories; Z68.44 - Body mass index [BMI] 60.0-69.9, adult Status: Acute Assessment and Plan: Lifestyle and diet modifications Subjective Date/time seen: 03/12/23 12:32 Interval history: Date of service: 03/12/23 Marciano Sapp is a 32 year old male with a history of asthma, depression, morbid obesity who is seen in follow up for left ankle fracture. He is feeling well today. Reports that his ankle pain has improved with pain medications, currently rated 5-6/10. Pain was up to 8-9/10 this morning prior to receiving pain medication. He reports that he has restless legs and occasionally his left foot will move involuntarily, this causes intermittent jolts of pain. He denies headache. No nausea, vomiting, fever, or chills. Does complain of feeling tired. Last bowel movement yesterday evening. No urinary symptoms. Review of Systems Review of Systems: All systems reviewed & are unremarkable except as noted in HPI and below Exam Narrative: General: Obese, well-appearing 32-year-old male, sitting up in bed, comfortable, NARD Neuro: awake, alert and oriented x4, speech clear, no focal neuro deficits noted HEENMT: normocephalic, atraumatic, EOMI, sclerae anicteric Respiratory: clear to auscultation bilaterally, nonlabored breathing Cardio: regular rate, regular rhythm with S1-S2 Abdomen: nondistended, normoactive bowel sounds, soft, nontender to palpation Extremities: Left ankle in splint, able to wiggle toes, brisk capillary refill Skin: no rashes or lesions, warm and dry Psych: appropriate mood and affect, judgment and insight intact Objective Data Vital Signs Vital Signs: Vital Signs - 24 hr 03/12/23 02:03 03/12/23 04:18 03/12/23 05:12 Temperature 97.9 F 98.2 F Pulse Rate 101 H 101 H 100 Respiratory Rate 14 14 20 Blood Pressure 139/84 139/92 H 136/78 Pulse Oximetry 99 97 98 Oxygen Delivery 03/12/23 06:00 03/12/23 08:30 Temperature Pulse Rate Respiratory Rate Blood Pressure Pulse Oximetry Oxygen Delivery Room Air Room Air Intake/Output Intake/Output: Intake & Output 03/09/23 03/10/23 03/11/23 03/12/23 23:59 23:59 23:59 23:59 Output Total 200 Balance -200 Meds/Results Medications: Active Medications Generic Name Dose Route Start Last Admin Trade Name Freq PRN Reason Stop Dose Admin Acetaminophen 650 mg 03/12/23 04:12 Acetaminophen 325 Mg Tablet PO Q4H PRN Mild Pain (1-3) or Fever Hydrocodone Bitart/Acetaminophen 2 tab 03/12/23 04:12 03/12/23 08:38 Hydrocodone/Acetaminophen (*Crx) 5-325 Mg Tablet PO 2 tab Q4H PRN Administration Pain Rated 7-10 Hydromorphone HCl 0.5 mg 03/12/23 04:12 Hydromorphone Hcl Inj (*Crx) 1 Mg/Ml Syr IV PUSH Q4H PRN Pain Rated 7-10 Radiology Results: ITS Impressions Ankle X-Ray 03/12/23 06:16 Impression: Status post closed reduction and casting of the left ankle. Improved alignment of the distal fibular fracture, without new anato
[2023-03-12 14:00] VITALS: BP 129/65; PULSE 83; RESP 18; TEMP 36.3; O2SAT 96
[2023-03-12 14:23] VITALS: O2SAT 97
--- NOTE | 2023-03-12 15:05 | PM.CNOR ---
Assessment and Plan Assessment and plan (1) Ankle fracture, bimalleolar, closed: Qualifiers: Encounter type: initial encounter Laterality: left Qualified Code(s): S82.842A - Displaced bimalleolar fracture of left lower leg, initial encounter for closed fracture Code(s): S82.843A - Displaced bimalleolar fracture of unspecified lower leg, initial encounter for closed fracture Status: Acute Assessment and Plan: 32-year-old with large body habitus presented to emergency room last night after slipping in his bathroom. Left ankle bimalleolar fracture with displacement. Splinted in the emergency room. Fracture, radiographs, history, treatment discussed in detail. Discussed nonoperative and operative treatment options with the patient. Risks and benefits of each as well as alternatives were reviewed. All of the patient's questions were answered. The risks of surgery reviewed including but not limited to: Neurovascular damage, wound complication, infection, blood clot, pulmonary embolus, stroke, myocardial infarction, and anesthetic risks up to and including . Continued pain and possible dysfunction were explained. Specific risks of the procedure including later recurrence of deformity. No guarantees were offered. If hardware used, discussed risk of failure/ breakage and possible need for removal. If complications occur, the patient understands the need for further treatment, possible further surgery. Patient verbalizes understanding and wishes to proceed. PLAN: Open reduction internal fixation left ankle bimalleolar fracture History of Present Illness HPI Consult date: 03/12/23 Requesting physician: Baldev Foley MD Chief complaint: Ankle Fracture Narrative: 32-year-old gentleman who slipped in his bathroom and fell injuring the left ankle. Radiographs show bimalleolar fracture. Patient unable to ambulate with crutches and maintain weight-bearing status and was admitted for further evaluation, care and treatment. Denies numbness and tingling. Denies any prior problems with the ankle or foot. Review of Systems Constitutional: Constitutional: Denies fever(s) Eyes: Eyes: Denies blurry vision ENT: Reports Normal hearing present Cardiovascular: Cardiovascular: Denies chest pain and Denies dyspnea Respiratory: Respiratory: Denies dyspnea and Denies wheezing Gastrointestinal: Gastrointestinal: Denies abdominal pain Genitourinary: Genitourinary: Denies urinary urgency Musculoskeletal: Musculoskeletal: Reports as per HPI and Denies numbness Integumentary/Breasts: Skin/Breast: Denies changing lesions and Denies sores Neurologic: Reports Normal hearing present, Denies behavioral changes, Denies confusion, Denies numbness and Denies convulsions Psychiatric: Psychiatric: Denies behavioral changes, Denies confusion and Denies hallucinations Endocrine: Endocrine: Denies heat intolerance Hematologic/Lymphatic: Hematologic/Lymphatic: Denies easy bleeding Allergic/Immunologic: Allergic/Immunologic: Denies wheezing PMFSH Past Medical History Medical History Asthma Blood in stool BRBPR (bright red blood per rectum) Depression Left ureteral stone Morbid obesity Patient denies significant medical history Family History Family History Grandparent Diabetes mellitus Dementia Social History Social History Smoking status: Never smoker Alcohol intake: current Substance use: never Lack of Transportation: No Lack of Food: Never True Current Housing: I Have Housing Concerned About Future Housing: No Difficulty Paying Gas/Electric Bills: No Difficulty Paying for Meds: No Currently Unemployed: No Education: Bachelor's Degree Difficulty w/ Childcare or Family Care: No Living arrangements: alone Gender id
[2023-03-12 20:47] VITALS: BP 112/75; PULSE 98; RESP 18; TEMP 36.3; O2SAT 95
[2023-03-13] VITALS (7 sets, daily range): BP systolic 124–131; BP diastolic 76–80; PULSE 87–92; RESP 16–20; TEMP 36.6–36.8; O2SAT 93–98
[2023-03-13] MEDS: HYDROcodone/acetaminophen (*CRX) 5-325 MG TABLET 2 TAB PO ×4 (05:10→20:54)
[2023-03-13 05:15] LABS: Hematocrit 39.2 % (42.0-52.0); Hemoglobin 12.5 g/dL (14.0-18.0); Mean Corpuscular HGB Conc 31.9 g/dl (32-36); Mean Corpuscular Hemoglobin 30.2 pg (26-34); Mean Corpuscular Volume 94.7 fl (80-100); Mean Platelet Volume 9.9 fl (7.4-10.4); Platelet Count Result 293 k/mm3 (150-375); Red Blood Count 4.14 M/mm3 (4.6-6.20); Red Cell Distribution Width 13.9 % (11.5-14.5); White Blood Count 9.1 K/mm3 (4.5-10.0)
[2023-03-13 05:35] LABS: Anion Gap 5 mmol/L (8-16); Blood Urea Nitrogen 11 mg/dL (9-20); Calcium 8.5 mg/dL (8.4-10.2); Carbon Dioxide 30 mmol/L (22-30); Chloride 103 mmol/L (98-107); Estimated CRCL calculation 208 ml/min; Estimated Glomerular Filt Rate > 60; Glucose 80 mg/dL (65-110); Potassium 3.9 mmol/L (3.4-5.0); Sodium 138 mmol/L (137-145)
--- NOTE | 2023-03-13 07:49 | PCPTNOTE ---
Pt to have ORIF, please re-order when pt is medically appropriate with weight bearing status.
--- NOTE | 2023-03-13 13:15 | PM.PNORT ---
Progress Note: A&P Assessment and Plan (1) Ankle fracture, bimalleolar, closed: Qualifiers: Encounter type: initial encounter Laterality: left Qualified Code(s): S82.842A - Displaced bimalleolar fracture of left lower leg, initial encounter for closed fracture Code(s): S82.843A - Displaced bimalleolar fracture of unspecified lower leg, initial encounter for closed fracture Status: Acute Assessment and Plan: Left ankle bimalleolar fracture with displacement. Splinted in the emergency room. Fracture, radiographs, history, treatment discussed in detail. Discussed nonoperative and operative treatment options with the patient. Risks and benefits of each as well as alternatives were reviewed. All of the patient's questions were answered. The risks of surgery reviewed including but not limited to: Neurovascular damage, wound complication, infection, blood clot, pulmonary embolus, stroke, myocardial infarction, and anesthetic risks up to and including . Continued pain and possible dysfunction were explained. Specific risks of the procedure including later recurrence of deformity. No guarantees were offered. If hardware used, discussed risk of failure/ breakage and possible need for removal. If complications occur, the patient understands the need for further treatment, possible further surgery. Patient verbalizes understanding and wishes to proceed. PLAN: Open reduction internal fixation left ankle bimalleolar fracture Surgery planned for Friday with Dr. Avalos. NPO at midnight before surgery. Pain control. Ice. Elevate. Subjective Subjective Date/Time Seen: 03/13/23 13:15 Review of Systems Constitutional: Constitutional: Denies fever(s) Eyes: Eyes: Denies blurry vision ENT: Reports Normal hearing present Cardiovascular: Cardiovascular: Denies chest pain and Denies dyspnea Respiratory: Respiratory: Denies dyspnea and Denies wheezing Gastrointestinal: Gastrointestinal: Denies abdominal pain Genitourinary: Genitourinary: Denies urinary urgency Musculoskeletal: Musculoskeletal: Reports as per HPI and Denies numbness Integumentary/Breasts: Skin/Breast: Denies changing lesions and Denies sores Neurologic: Reports Normal hearing present, Denies behavioral changes, Denies confusion, Denies numbness and Denies convulsions Psychiatric: Psychiatric: Denies behavioral changes, Denies confusion and Denies hallucinations Endocrine: Endocrine: Denies heat intolerance Hematologic/Lymphatic: Hematologic/Lymphatic: Denies easy bleeding Allergic/Immunologic: Allergic/Immunologic: Denies wheezing Exam Const: General: No confusion Orientation/consciousness: No confusion HENMT: Head: normal to inspection, normocephalic and atraumatic Neck: Neck: supple and nontender Chest: Chest palpation & inspection: normal inspection of the chest Resp: Effort & Inspection: normal respiratory effort and no audible wheezes Cardio: Rate: regular rate : General: Yes deferred Skin: General skin exam: no rashes or lesions noted Neuro: General: No confusion Extrem: General: capillary refill normal Right upper extremity: normal to inspection Left upper extremity: normal to inspection Right lower extremity: normal to inspection and hip/thigh Details: normal to inspection Left lower extremity: hip/thigh Details: normal to inspection, knee Details: normal to inspection and knee ligament exam normal Details: anterior drawer test normal, valgus stress test normal, varus stress test normal and Marta's test normal, ankle (no calf tenderness) Details: abnormal to inspection ( Obvious swelling at the ankle joint), tenderness ( lateral malleolus), swelling (moderate lateral ankle), abnormal ROM Details: pain with active ROM Details: with plantar flexion and with dorsiflexion and with range as follows ( limited secondary to injury), crepitus Details: at the lateral malleolus and other ( good capillary refill
--- NOTE | 2023-03-13 14:46 | PM.IMPN ---
Progress Note: A&P Assessment and Plan (1) Ankle fracture, bimalleolar, closed: Qualifiers: Encounter type: initial encounter Laterality: left Qualified Code(s): S82.842A - Displaced bimalleolar fracture of left lower leg, initial encounter for closed fracture Code(s): S82.843A - Displaced bimalleolar fracture of unspecified lower leg, initial encounter for closed fracture Status: Acute Assessment and Plan: Secondary to mechanical fall. Initial x-ray with bimalleolar fractures. Reduced in the ED and subsequent x-ray improved alignment of distal fibular fracture and worsened alignment of the medial malleolus fracture with new abnormal widening of medial aspect. Appreciate orthopedic surgery recommendation Continue with supportive care and pain management Will need PT/OT pending Orthopedic surgery recommendations Planning for ORIF on 03/17/23 (2) Asthma: Code(s): J45.909 - Unspecified asthma, uncomplicated Status: Acute Assessment and Plan: Stable, no acute exacerbation (3) Morbid obesity with BMI of 60.0-69.9, adult: Code(s): E66.01 - Morbid (severe) obesity due to excess calories; Z68.44 - Body mass index [BMI] 60.0-69.9, adult Status: Acute Assessment and Plan: Lifestyle and diet modifications Subjective Date/time seen: 03/13/23 14:46 Interval history: Date of service: 03/12/23 Marciano Sapp is a 32 year old male with a history of asthma, depression, morbid obesity who is seen in follow up for left ankle fracture. He is feeling well today. Endorses 4/10 pain in his left ankle when he is resting. With any movement, pain increases to 6/10. He did have trouble sleeping last night, stating the a time he moved around he would wake up with pain. He denies any urinary symptoms. Last bowel movement was 2 days ago. Denies shortness of breath, cough, chest pain. Tolerating diet without difficulty. Review of Systems Review of Systems: All systems reviewed & are unremarkable except as noted in HPI and below Exam Narrative: General: Obese, well-appearing 32-year-old male, sitting up in bed, comfortable, NARD Neuro: awake, alert and oriented x4, speech clear, no focal neuro deficits noted HEENMT: normocephalic, atraumatic, EOMI, sclerae anicteric Respiratory: clear to auscultation bilaterally, nonlabored breathing Cardio: regular rate, regular rhythm with S1-S2 Abdomen: nondistended, normoactive bowel sounds, soft, nontender to palpation Extremities: Left ankle in splint, able to wiggle toes, brisk capillary refill Skin: no rashes or lesions, warm and dry Psych: appropriate mood and affect, judgment and insight intact Objective Data Vital Signs Vital Signs: Vital Signs - 24 hr 03/12/23 20:47 03/12/23 20:00 03/13/23 05:41 Temperature 97.3 F L 97.9 F Pulse Rate 98 92 Respiratory Rate 18 20 Blood Pressure 112/75 131/80 Pulse Oximetry 95 96 Oxygen Delivery Room Air 03/13/23 09:05 03/13/23 13:53 Temperature 98.3 F Pulse Rate 87 Respiratory Rate 20 18 Blood Pressure 124/76 Pulse Oximetry 96 95 Oxygen Delivery Room Air Intake/Output Intake/Output: Intake & Output 03/10/23 03/11/23 03/12/23 03/13/23 23:59 23:59 23:59 23:59 Intake Total 990 880 Output Total 800 700 Balance 190 180 Meds/Results Medications: Active Medications Generic Name Dose Route Start Last Admin Trade Name Freq PRN Reason Stop Dose Admin Acetaminophen 650 mg 03/12/23 04:12 Acetaminophen 325 Mg Tablet PO Q4H PRN Mild Pain (1-3) or Fever Hydrocodone Bitart/Acetaminophen 2 tab 03/12/23 04:12 03/13/23 09:04 Hydrocodone/Acetaminophen (*Crx) 5-325 Mg Tablet PO 2 tab Q4H PRN Administration Pain Rated 7-10 Hydromorphone HCl 0.5 mg 03/12/23 04:12 Hydromorphone Hcl Inj (*Crx) 1 Mg/Ml Syr IV PUSH Q4H PRN Pain Rated 7-10 Radiology Results: ITS Impressions Ankl
[2023-03-14] MEDS: HYDROcodone/acetaminophen (*CRX) 5-325 MG TABLET 2 TAB PO ×4 (03:01→22:20)
[2023-03-14 05:17] LABS: Hematocrit 38.5 % (42.0-52.0); Hemoglobin 12.6 g/dL (14.0-18.0)
[2023-03-14 06:12] VITALS: BP 124/73; PULSE 89; RESP 16; TEMP 36.6; O2SAT 96
[2023-03-14 08:49] VITALS: RESP 16; O2SAT 96
[2023-03-14 14:00] VITALS: BP 108/71; PULSE 88; RESP 20; TEMP 36.5; O2SAT 95
--- NOTE | 2023-03-14 14:32 | PM.PNORT ---
Progress Note: A&P Assessment and Plan (1) Ankle fracture, bimalleolar, closed: Qualifiers: Encounter type: initial encounter Laterality: left Qualified Code(s): S82.842A - Displaced bimalleolar fracture of left lower leg, initial encounter for closed fracture Code(s): S82.843A - Displaced bimalleolar fracture of unspecified lower leg, initial encounter for closed fracture Status: Acute Assessment and Plan: Left ankle bimalleolar fracture with displacement. Splinted in the emergency room. Fracture, radiographs, history, treatment discussed in detail. Discussed nonoperative and operative treatment options with the patient. Risks and benefits of each as well as alternatives were reviewed. All of the patient's questions were answered. The risks of surgery reviewed including but not limited to: Neurovascular damage, wound complication, infection, blood clot, pulmonary embolus, stroke, myocardial infarction, and anesthetic risks up to and including . Continued pain and possible dysfunction were explained. Specific risks of the procedure including later recurrence of deformity. No guarantees were offered. If hardware used, discussed risk of failure/ breakage and possible need for removal. If complications occur, the patient understands the need for further treatment, possible further surgery. Patient verbalizes understanding and wishes to proceed. PLAN: Open reduction internal fixation left ankle bimalleolar fracture Surgery planned for Friday with Dr. Avalos. NPO at midnight before surgery. Pain control. Ice. Elevate. Plan to begin PT/OT to mobilize patient out of bed if possible. NO WEIGHT BEARING LLE. Same restrictions expected post op. Subjective Subjective Date/Time Seen: 03/14/23 14:32 Interval history: Patient alert. Laying in bed. Awaiting surgery. Review of Systems Constitutional: Constitutional: Denies fever(s) Eyes: Eyes: Denies blurry vision ENT: Reports Normal hearing present Cardiovascular: Cardiovascular: Denies chest pain and Denies dyspnea Respiratory: Respiratory: Denies dyspnea and Denies wheezing Gastrointestinal: Gastrointestinal: Denies abdominal pain Genitourinary: Genitourinary: Denies urinary urgency Musculoskeletal: Musculoskeletal: Reports as per HPI and Denies numbness Integumentary/Breasts: Skin/Breast: Denies changing lesions and Denies sores Neurologic: Reports Normal hearing present, Denies behavioral changes, Denies confusion, Denies numbness and Denies convulsions Psychiatric: Psychiatric: Denies behavioral changes, Denies confusion and Denies hallucinations Endocrine: Endocrine: Denies heat intolerance Hematologic/Lymphatic: Hematologic/Lymphatic: Denies easy bleeding Allergic/Immunologic: Allergic/Immunologic: Denies wheezing Exam Const: General: No confusion Orientation/consciousness: No confusion HENMT: Head: normal to inspection, normocephalic and atraumatic Neck: Neck: supple and nontender Chest: Chest palpation & inspection: normal inspection of the chest Resp: Effort & Inspection: normal respiratory effort and no audible wheezes Cardio: Rate: regular rate : General: Yes deferred Skin: General skin exam: no rashes or lesions noted Neuro: General: No confusion Extrem: General: capillary refill normal Right upper extremity: normal to inspection Left upper extremity: normal to inspection Right lower extremity: normal to inspection and hip/thigh Details: normal to inspection Left lower extremity: hip/thigh Details: normal to inspection, knee Details: normal to inspection and knee ligament exam normal Details: anterior drawer test normal, valgus stress test normal, varus stress test normal and Marta's test normal, ankle (no calf tenderness) Details: abnormal to inspection ( Obvious swelling at the ankle joint), tenderness ( lateral malleolus), swelling (moderate lateral ankle), abnormal ROM Details: pain with acti
--- NOTE | 2023-03-14 16:54 | PCPTNOTE ---
On 03/14/23, the student, [Edwige Bloom], provided care and completed [facility] documentation on this patient. I have reviewed the student's documentation and agree with the findings.
--- NOTE | 2023-03-14 17:45 | PM.IMPN ---
Progress Note: A&P Assessment and Plan (1) Ankle fracture, bimalleolar, closed: Qualifiers: Encounter type: initial encounter Laterality: left Qualified Code(s): S82.842A - Displaced bimalleolar fracture of left lower leg, initial encounter for closed fracture Code(s): S82.843A - Displaced bimalleolar fracture of unspecified lower leg, initial encounter for closed fracture Status: Acute Assessment and Plan: Secondary to mechanical fall. Initial x-ray with bimalleolar fractures. Reduced in the ED and subsequent x-ray improved alignment of distal fibular fracture and worsened alignment of the medial malleolus fracture with new abnormal widening of medial aspect. Appreciate orthopedic surgery recommendation Continue with supportive care and pain management PT/OT per Orthopedic surgery recommendations Planning for ORIF on 03/17/23 (2) Asthma: Code(s): J45.909 - Unspecified asthma, uncomplicated Status: Acute Assessment and Plan: Stable, no acute exacerbation (3) Morbid obesity with BMI of 60.0-69.9, adult: Code(s): E66.01 - Morbid (severe) obesity due to excess calories; Z68.44 - Body mass index [BMI] 60.0-69.9, adult Status: Acute Assessment and Plan: Lifestyle and diet modifications Subjective Date/time seen: 03/14/23 17:45 Interval history: 32yo male with a history of asthma, depression, morbid obesity who is seen in follow up for left ankle fracture. Had increased pain after working with PT. No CP or SOB. Eating okay. Exam Narrative: AF 97.7 108/71 88 20 95% ra Gen - NARD Chest - CTA bilaterally, nml RR. no wheezes CV - RRR S1/S2 Abd - Soft, NT/ND, Positive BS Ext - No right pedal edema. Left LE in soft cast. Neuro - Alert and oriented. Normal sensation to the left toes. Able to move all toes Psych - Nml mood and affect Skin - Warm and dry Objective Data Vital Signs Vital Signs: Vital Signs - 24 hr 03/13/23 20:19 03/13/23 20:00 03/14/23 06:12 Temperature 97.8 F 97.9 F Pulse Rate 87 87 89 Respiratory Rate 16 16 16 Blood Pressure 129/78 124/73 Pulse Oximetry 98 98 96 Oxygen Delivery Room Air 03/13/23 22:10 03/14/23 08:49 03/14/23 15:07 Temperature Pulse Rate Respiratory Rate 16 Blood Pressure Pulse Oximetry 98 96 Oxygen Delivery Room Air Room Air Room Air 03/14/23 14:00 Temperature 97.7 F Pulse Rate 88 Respiratory Rate 20 Blood Pressure 108/71 Pulse Oximetry 95 Oxygen Delivery Intake/Output Intake/Output: Intake & Output 03/11/23 03/12/23 03/13/23 03/14/23 23:59 23:59 23:59 23:59 Intake Total 990 1870 1020 Output Total 800 1650 1825 Balance 190 220 -805 Meds/Results Medications: Active Medications Generic Name Dose Route Start Last Admin Trade Name Freq PRN Reason Stop Dose Admin Acetaminophen 650 mg 03/12/23 04:12 Acetaminophen 325 Mg Tablet PO Q4H PRN Mild Pain (1-3) or Fever Hydrocodone Bitart/Acetaminophen 2 tab 03/12/23 04:12 03/14/23 15:12 Hydrocodone/Acetaminophen (*Crx) 5-325 Mg Tablet PO 2 tab Q4H PRN Administration Pain Rated 7-10 Hydromorphone HCl 0.5 mg 03/12/23 04:12 Hydromorphone Hcl Inj (*Crx) 1 Mg/Ml Syr IV PUSH Q4H PRN Pain Rated 7-10 Radiology Results: ITS Impressions Ankle X-Ray 03/12/23 06:16 Impression: Status post closed reduction and casting of the left ankle. Improved alignment of the distal fibular fracture, without new anatomic alignment. Worsened alignment of the medial malleolus fracture, with new abnormal widening of the medial aspect of the ankle mortise. Labs Labs: Laboratory Results - last 24 hr 03/14/23 05:00 Hgb 12.6 L Hct 38.5 L
[2023-03-14 19:29] VITALS: BP 125/75; PULSE 89; RESP 16; TEMP 36.5; O2SAT 97
[2023-03-15] MEDS: HYDROcodone/acetaminophen (*CRX) 5-325 MG TABLET 2 TAB PO ×4 (03:42→22:09)
[2023-03-15 06:17] VITALS: BP 122/65; PULSE 86; RESP 16; TEMP 36.4; O2SAT 98
[2023-03-15 14:00] VITALS: BP 111/67; PULSE 88; RESP 24; TEMP 36.6; O2SAT 97
--- NOTE | 2023-03-15 14:59 | PM.IMPN ---
Progress Note: A&P Assessment and Plan (1) Ankle fracture, bimalleolar, closed: Qualifiers: Encounter type: initial encounter Laterality: left Qualified Code(s): S82.842A - Displaced bimalleolar fracture of left lower leg, initial encounter for closed fracture Code(s): S82.843A - Displaced bimalleolar fracture of unspecified lower leg, initial encounter for closed fracture Status: Acute Assessment and Plan: Secondary to mechanical fall. Initial x-ray with bimalleolar fractures. Reduced in the ED and subsequent x-ray improved alignment of distal fibular fracture and worsened alignment of the medial malleolus fracture with new abnormal widening of medial aspect. Appreciate orthopedic surgery recommendation Continue with supportive care and pain management PT/OT per Orthopedic surgery recommendations Planning for ORIF on 03/17/23 (2) Asthma: Code(s): J45.909 - Unspecified asthma, uncomplicated Status: Acute Assessment and Plan: Stable, no acute exacerbation (3) Morbid obesity with BMI of 60.0-69.9, adult: Code(s): E66.01 - Morbid (severe) obesity due to excess calories; Z68.44 - Body mass index [BMI] 60.0-69.9, adult Status: Acute Assessment and Plan: Lifestyle and diet modifications Plan DVT prophylaxis: Add lovenox Code status: Full Subjective Date/time seen: 03/15/23 14:59 Interval history: 32yo male with a history of asthma, depression, morbid obesity who is seen in follow up for left ankle fracture. No complaints. Slept okay. Pain tolerable. No CP or SOB. No n/v. Exam Narrative: AF 97.9 111/67 88 24 97% ra Gen - NARD Chest - CTA bilaterally, nml RR. no wheezes CV - RRR S1/S2 Abd - Soft, NT/ND, Positive BS Ext - No right pedal edema. Left LE in soft cast. Neuro - Alert and oriented. Normal sensation to the left toes. Able to move all toes Psych - Nml mood and affect Skin - Warm and dry Objective Data Vital Signs Vital Signs: Vital Signs - 24 hr 03/14/23 15:07 03/14/23 19:29 03/15/23 06:17 Temperature 97.7 F 97.5 F L Pulse Rate 89 86 Respiratory Rate 16 16 Blood Pressure 125/75 122/65 Pulse Oximetry 97 98 Oxygen Delivery Room Air 03/15/23 08:06 03/15/23 14:00 Temperature 97.9 F Pulse Rate 88 Respiratory Rate 24 H Blood Pressure 111/67 Pulse Oximetry 97 Oxygen Delivery Room Air Intake/Output Intake/Output: Intake & Output 03/12/23 03/13/23 03/14/23 03/15/23 23:59 23:59 23:59 23:59 Intake Total 990 1870 1170 970 Output Total 800 1650 2725 700 Balance 190 220 -1555 270 Meds/Results Medications: Active Medications Generic Name Dose Route Start Last Admin Trade Name Freq PRN Reason Stop Dose Admin Acetaminophen 650 mg 03/12/23 04:12 Acetaminophen 325 Mg Tablet PO Q4H PRN Mild Pain (1-3) or Fever Hydrocodone Bitart/Acetaminophen 2 tab 03/12/23 04:12 03/15/23 10:33 Hydrocodone/Acetaminophen (*Crx) 5-325 Mg Tablet PO 2 tab Q4H PRN Administration Pain Rated 7-10 Hydromorphone HCl 0.5 mg 03/12/23 04:12 Hydromorphone Hcl Inj (*Crx) 1 Mg/Ml Syr IV PUSH Q4H PRN Pain Rated 7-10 Radiology Results: ITS Impressions Ankle X-Ray 03/12/23 06:16 Impression: Status post closed reduction and casting of the left ankle. Improved alignment of the distal fibular fracture, without new anatomic alignment. Worsened alignment of the medial malleolus fracture, with new abnormal widening of the medial aspect of the ankle mortise.
[2023-03-15] MEDS: ENOXAPARIN 40 MG/0.4 ML SYRINGE SUB-Q (16:14)
[2023-03-15 21:19] VITALS: BP 126/74; PULSE 88; RESP 16; TEMP 36.8; O2SAT 98
[2023-03-16] MEDS: HYDROcodone/acetaminophen (*CRX) 5-325 MG TABLET 2 TAB PO ×4 (03:01→20:32)
[2023-03-16 06:43] VITALS: BP 121/68; PULSE 90; RESP 16; TEMP 36.8; O2SAT 98
[2023-03-16] MEDS: ENOXAPARIN 40 MG/0.4 ML SYRINGE SUB-Q (08:05)
--- NOTE | 2023-03-16 11:33 | PM.IMPN ---
Progress Note: A&P Assessment and Plan (1) Ankle fracture, bimalleolar, closed: Qualifiers: Encounter type: initial encounter Laterality: left Qualified Code(s): S82.842A - Displaced bimalleolar fracture of left lower leg, initial encounter for closed fracture Code(s): S82.843A - Displaced bimalleolar fracture of unspecified lower leg, initial encounter for closed fracture Status: Acute Assessment and Plan: Secondary to mechanical fall. Initial x-ray with bimalleolar fractures. Reduced in the ED and subsequent x-ray improved alignment of distal fibular fracture and worsened alignment of the medial malleolus fracture with new abnormal widening of medial aspect. Appreciate orthopedic surgery recommendation Continue with supportive care and pain management PT/OT per Orthopedic surgery recommendations Planning for ORIF tomorrow (2) Asthma: Code(s): J45.909 - Unspecified asthma, uncomplicated Status: Acute Assessment and Plan: Stable, no acute exacerbation (3) Morbid obesity with BMI of 60.0-69.9, adult: Code(s): E66.01 - Morbid (severe) obesity due to excess calories; Z68.44 - Body mass index [BMI] 60.0-69.9, adult Status: Acute Assessment and Plan: BMI 61. Lifestyle and diet modifications Plan DVT prophylaxis: Lovenox Code status: Full Subjective Date/time seen: 03/16/23 11:33 Interval history: 32yo male with a history of asthma, depression, morbid obesity who is seen in follow up for left ankle fracture. Pain better. Was having calf spasms. No n/v. No CP or SOB. Exam Narrative: AF 98.2 121/68 90 16 98% ra Gen - NARD Chest - CTA bilaterally, nml RR. no wheezes CV - RRR S1/S2 Abd - Soft, NT/ND, Positive BS Ext - No right pedal edema. Left LE in soft cast. Negative Homans. Neuro - Alert and oriented. Normal sensation to the left toes. Able to move all toes Psych - Nml mood and affect Skin - Warm and dry Objective Data Vital Signs Vital Signs: Vital Signs - 24 hr 03/15/23 14:00 03/15/23 21:19 03/16/23 06:43 Temperature 97.9 F 98.3 F 98.2 F Pulse Rate 88 88 90 Respiratory Rate 24 H 16 16 Blood Pressure 111/67 126/74 121/68 Pulse Oximetry 97 98 98 Oxygen Delivery 03/16/23 08:10 Temperature Pulse Rate Respiratory Rate Blood Pressure Pulse Oximetry Oxygen Delivery Room Air Intake/Output Intake/Output: Intake & Output 03/13/23 03/14/23 03/15/23 03/16/23 23:59 23:59 23:59 23:59 Intake Total 1870 1170 1460 440 Output Total 1650 2725 1200 850 Balance 220 -1555 260 -410 Meds/Results Medications: Active Medications Generic Name Dose Route Start Last Admin Trade Name Freq PRN Reason Stop Dose Admin Acetaminophen 650 mg 03/12/23 04:12 Acetaminophen 325 Mg Tablet PO Q4H PRN Mild Pain (1-3) or Fever Hydrocodone Bitart/Acetaminophen 2 tab 03/12/23 04:12 03/16/23 08:05 Hydrocodone/Acetaminophen (*Crx) 5-325 Mg Tablet PO 2 tab Q4H PRN Administration Pain Rated 7-10 Enoxaparin Sodium 40 mg 03/16/23 09:00 03/16/23 08:05 Enoxaparin 40 Mg/0.4 Ml Syringe SUB-Q 40 mg DAILY PAULINE Administration Hydromorphone HCl 0.5 mg 03/12/23 04:12 Hydromorphone Hcl Inj (*Crx) 1 Mg/Ml Syr IV PUSH Q4H PRN Pain Rated 7-10 Radiology Results: ITS Impressions Ankle X-Ray 03/12/23 06:16 Impression: Status post closed reduction and casting of the left ankle. Improved alignment of the distal fibular fracture, without new anatomic alignment. Worsened alignment of the medial malleolus fracture, with new abnormal widening of the medial aspect of the ankle mortise.
[2023-03-16 14:05] VITALS: BP 135/81; PULSE 94; RESP 20; TEMP 36.6; O2SAT 96
[2023-03-16 19:52] VITALS: BP 145/85; PULSE 98; RESP 18; TEMP 36.3; O2SAT 94
[2023-03-17] VITALS (13 sets, daily range): BP systolic 112–141; BP diastolic 63–83; PULSE 78–108; RESP 16–21; TEMP 36.4–37.4; O2SAT 95–100
[2023-03-17] MEDS: HYDROcodone/acetaminophen (*CRX) 5-325 MG TABLET 2 TAB PO ×4 (01:05→20:24)
--- NOTE | 2023-03-17 07:17 | WPDHPUPDATE1 ---
History and Physical Update Update Date/Time: 03/17/23 07:17 History and Physical has been reviewed, including an updated exam of the patient. There are NO changes in the patient's condition. Risks, benefits, and alternatives have been discussed and questions answered. Patient agrees to proceed with procedure.
--- NOTE | 2023-03-17 10:10 | PC.NURSE ---
Patient to OR via bed.
[2023-03-17] MEDS: LACTATED RINGERS 1,000 ML 30 ML IV CONT ×2 (10:20→12:27)
--- NOTE | 2023-03-17 10:25 | WPDANESEPPF ---
Anes - Initial Pre Proc Eval Procedure: Operation Date: 03/17/23 11:30 Proposed Procedures p Open Reduction Internal Fixation Left Ankle - Yury Avalos MD Date/Time: 03/17/23 10:25 Surgeon: Shannon Boland PA-C Pre Op Diagnosis: Ankle Fracture Patient Data Age: 32 Gender: M Height: 1.8 m Weight: 199.5 kg Last Vital Signs Temp 36.6 C 03/17/23 06:00 Pulse 78 03/17/23 06:00 Resp 18 03/17/23 06:00 BP 121/71 03/17/23 06:00 Pulse Ox 99 03/17/23 06:00 O2 Del Method Room Air 03/17/23 08:45 Allergies Allergy/AdvReac Type Severity Reaction Status Date / Time No Known Allergies Allergy Verified 05/25/21 07:44 Home Medications Medication Instructions Recorded Confirmed Type No Home Medications 05/16/21 03/12/23 History hydrocodone 5 mg-acetaminophen 325 2 tablet PO Q4H PRN pain #40 tabs 03/14/23 Rx mg tablet Patient hx anesthesia problems: none Family hx anesthesia problems: none Results Review: All pre-operative results and documents have been reviewed as part of the pre-operative evaluation. [facility] Past Medical History Medical History Asthma Blood in stool BRBPR (bright red blood per rectum) Depression Left ureteral stone Morbid obesity Patient denies significant medical history Family History Family History Grandparent Diabetes mellitus Dementia Social History Social History Smoking status: Never smoker Alcohol intake: current Substance use: never Lack of Transportation: No Lack of Food: Never True Current Housing: I Have Housing Concerned About Future Housing: No Difficulty Paying Gas/Electric Bills: No Difficulty Paying for Meds: No Currently Unemployed: No Education: Bachelor's Degree Difficulty w/ Childcare or Family Care: No Living arrangements: alone Gender identity (if verbalized by the patient): Male Spiritual care concerns: No Anes - Eval Final PreProcedure Day of Procedure 03/17/23 10:25 Patient weight: super morbidly obese Heart: regular rate and rhythm Lungs: decreased breath sounds Airway: Mallampati scale class II Neurological: alert and oriented Last oral intake: >/= 8 hours ASA classification: III Emergent: no Anesthetic plan: proceed Anesthesia type and monitoring: general LMA and standard monitoring Results Review: All pre-operative results and documents have been reviewed as part of the pre-operative evaluation. Informed Consent: The patient's anesthetic plan and its attendant risks and benefits were discussed with the patient/family/POA. Questions were solicited and answers provided to the satisfaction of the patient/family/POA.
[2023-03-17] MEDS: KETOROLAC 15 MG/ML VIAL (*BKC) IV PUSH (10:50)
[2023-03-17] MEDS: ceFAZolin 3 GM/D5W 100 ML 100 ML IVPB (10:51)
[2023-03-17] MEDS: ACETAMINOPHEN 500 MG TABLET 1000 MG PO (11:07)
[2023-03-17] MEDS: BUPIVACAINE/EPINEPHRINE 0.5% 10 ML VIAL 50 ML INFILTRATE (11:53)
--- NOTE | 2023-03-17 12:36 | W.PM.PROC2 ---
Procedure Note - Detailed Date of Procedure 03/17/23 Pre-op Diagnosis Ankle Fracture Post-op Diagnosis Same ( With syndesmosis disruption) Procedure Performed open Reduction internal fixation left ankle bimalleolar fracture, open reduction internal fixation left ankle syndesmosis-distal. Surgeon Yury Avalos MD [employer] 1st clinical project assistant Anesthesia General Indications 32-year-old who fell and sustained a left ankle fracture with displacement. Presents for operative treatment. Findings instability of the ankle mortise and syndesmosis. Description of Procedure After informed consent, the operative extremity was marked in the preoperative holding area. Patient received intravenous antibiotics. Patient was then taken to the operating room and underwent general anesthesia by the anesthesia team. Positioned supine on the operating room table with a soft bump under the ipsilateral hip. A time-out was performed confirming the patient, site of the surgery, operative plan. left Lower extremity then prepped and draped in the usual sterile surgical fashion using ChloraPrep skin solution. Foot and ankle exsanguinated and a calf tourniquet inflated to 250 mmHg. Longitudinal incision made over the lateral ankle distal fibula with a 15 blade knife. Hemostasis controlled with electrocautery. Full-thickness soft tissue flaps developed and the fascia was incised in line with the skin incision. Fracture identified and cleared with a dental pick, irrigation and rongeur. Fracture reduced and held with bone-holding clamp. Image intensification confirmed reduction of the fracture and the ankle mortise. Fixation achieved with a 3.3 mm fibular locking nail. Guide pin placed in the intramedullary canal from distal to proximal and verified with image intensification. Intramedullary canal reaming then performed. Guide rigo removed and the nail inserted to the correct depth and deployed the proximal fixation device. Nail locked distally with 2.7 mm screws x2. Image intensification used to confirm reduction of the fracture and placement of the hardware. Medial side then addressed. Longitudinal incision made with a 15 blade knife over the medial malleolus fracture. Hemostasis controlled with electrocautery. Fascia incised in line with skin incision. Periosteum cleared from the medial malleolus fracture. Medial side of the joint inspected and noted to have mild amount of trauma to the chondral surface. Thorough irrigation of the ankle joint and suctioned out. Fracture reduced and provisionally pinned. Fixation achieved with 4.0 mm partially threaded cancellous screws x2 placed in cannulated screw fashion. Image intensification confirmed reduction of the fracture and placement of the hardware. Stress of the ankle performed Instability of the syndesmosis noted. Dissection carried down on the posterolateral aspect of the fibula. Syndesmosis reduced repair tight rope system. Drill from the fibula into the tibia and verified with image intensification. Tight rope system then passed through the drill hole medial button deployed. Suture clinical project assistant and tightened with the ankle in neutral position. Image intensification confirmed placement stability of the mortise syndesmosis direction. Wounds thoroughly irrigated with antibiotic solution. Fascia repaired with 00 Vicryl interrupted suture. Subcutaneous tissue repaired with 000 Monocryl interrupted suture and Skin approximated with Steri-Strips. Sterile dressings applied followed by bulky dressing and splint. Patient awoken from anesthesia, extubated and taken to the recovery room in stable condition. All sponge, needle and instrument counts correct at the end of the case. Palpable dorsalis pedis pulse noted prior to dressing. Implants Arthrex fibula locking nail, 4.0 mm cannulated screw x2, syndesmosis tightrope system X 1 Estimated Blood Loss 5 Tourniquet Time 55 Urine Output 400 Drains No Packing No Pathology
[2023-03-17] MEDS: HYDROmorphone HCL INJ (*CRX) 1 MG/ML SYR 0.5 MG IV PUSH ×5 (12:41→17:54)
[2023-03-17] MEDS: KCL 20 MEQ/D5/0.45% SOD CHL 1,000 ML 80 ML IV CONT (14:07)
--- NOTE | 2023-03-17 15:29 | PM.IMPN ---
Progress Note: A&P Assessment and Plan (1) Ankle fracture, bimalleolar, closed: Qualifiers: Encounter type: initial encounter Laterality: left Qualified Code(s): S82.842A - Displaced bimalleolar fracture of left lower leg, initial encounter for closed fracture Code(s): S82.843A - Displaced bimalleolar fracture of unspecified lower leg, initial encounter for closed fracture Status: Acute Assessment and Plan: Secondary to mechanical fall. Initial x-ray with bimalleolar fractures. Reduced in the ED and subsequent x-ray improved alignment of distal fibular fracture and worsened alignment of the medial malleolus fracture with new abnormal widening of medial aspect. Patient admitted and ortho consulted. Patient underwent OR/IF left ankle bimalleolar fracture with ORIF left ankle syndesmosis-distal earlier today. Tolerated the procedure well. Appreciate orthopedic surgery recommendation Continue with supportive care and pain management PT/OT per Orthopedic surgery recommendations (2) Asthma: Code(s): J45.909 - Unspecified asthma, uncomplicated Status: Acute Assessment and Plan: Stable, no acute exacerbation (3) Morbid obesity with BMI of 60.0-69.9, adult: Code(s): E66.01 - Morbid (severe) obesity due to excess calories; Z68.44 - Body mass index [BMI] 60.0-69.9, adult Status: Acute Assessment and Plan: BMI 61. Lifestyle and diet modifications Plan DVT prophylaxis: Lovenox Code status: Full Subjective Date/time seen: 03/17/23 15:29 Interval history: 32yo male with a history of asthma, depression, morbid obesity who is seen in follow up for left ankle fracture. Just back from surgery now. No CP or SOB. Pain currently 4-5/10. Exam Narrative: AF 98.1 119/69 98 20 97% ra Gen - NARD Chest - CTA anteriorly, nml RR. no wheezes CV - RRR S1/S2 Abd - Soft, obese, NT, Positive BS Ext - No right pedal edema. Left LE in soft cast. Neuro - Alert and oriented. Normal sensation to the left toes. Able to move visible toes Psych - Nml mood and affect Skin - Warm and dry Objective Data Vital Signs Vital Signs: Vital Signs - 24 hr 03/16/23 19:52 03/17/23 06:00 03/17/23 08:45 Temperature 97.4 F L 97.9 F Pulse Rate 98 78 Respiratory Rate 18 18 Blood Pressure 145/85 H 121/71 Pulse Oximetry 94 99 Oxygen Delivery Room Air Oxygen Flow Rate 03/17/23 10:28 03/17/23 12:27 03/17/23 12:42 Temperature 98.2 F 99.4 F Pulse Rate 89 106 H 104 H Respiratory Rate 18 20 21 H Blood Pressure 117/68 117/73 126/80 Pulse Oximetry 96 100 98 Oxygen Delivery Room Air Simple Face Mask Simple Face Mask Oxygen Flow Rate 6 4 03/17/23 13:00 03/17/23 13:15 03/17/23 13:30 Temperature Pulse Rate 105 H 108 H 98 Respiratory Rate 18 18 16 Blood Pressure 125/76 141/64 H 126/83 Pulse Oximetry 98 95 95 Oxygen Delivery Simple Face Mask Nasal Cannula Nasal Cannula Oxygen Flow Rate 4 3 3 03/17/23 14:00 03/17/23 14:15 03/17/23 14:45 Temperature 98.2 F 98.2 F 98.1 F Pulse Rate 99 102 H 98 Respiratory Rate 20 18 20 Blood Pressure 123/77 116/73 119/69 Pulse Oximetry 97 98 97 Oxygen Delivery Oxygen Flow Rate Intake/Output Intake/Output: Intake & Output 03/14/23 03/15/23 03/16/23 03/17/23 23:59 23:59 23:59 23:59 Intake Total 1170 1460 920 900 Output Total 2725 1200 1240 1075 Djecwlp -4179 260 320 -175 Meds/Results Medications: Active Medications Generic Name Dose Route Start Last Admin Trade Name Emerson PRN Reason Stop Dose Admin Acetaminophen 650 mg 03/12/23 04:12 Acetaminophen 325 Mg Tablet PO Q4H PRN Mild Pain (1-3) or Fever Hydrocodone Bitart/Acetaminophen 2 tab 03/12/23 04:12 03/17/23 15:01 Hydrocodone/Acetaminophen (*Crx) 5-325 Mg Tablet PO 2 tab Q4H PRN Administration Pain Rated 7-10 Enoxaparin Sodium 40 mg 03/16/23 09:00 03/16/23 08:05 Enoxaparin 40 Mg/0.4 M
[2023-03-17] MEDS: SENNA/DOCUSATE SODIUM TABLET 2 TAB PO (16:47)
[2023-03-17] MEDS: ceFAZolin 2 GM/D5W 50 ML 2 GM/50 ML BAG IVPB (17:54)
[2023-03-17] MEDS: FAMOTIDINE 20 MG TABLET PO (20:26)
[2023-03-18] MEDS: HYDROcodone/acetaminophen (*CRX) 5-325 MG TABLET 2 TAB PO ×4 (00:40→22:00)
[2023-03-18] MEDS: ceFAZolin 2 GM/D5W 50 ML 2 GM/50 ML BAG IVPB ×2 (02:09→11:37)
[2023-03-18 03:36] VITALS: BP 125/77; PULSE 82; RESP 18; TEMP 36.4; O2SAT 97
[2023-03-18 05:44] LABS: Basophils Percent Auto 0.3 % (0.2-1.2); Eosinophils Percent Auto 0.1 % (0-4.4); Hematocrit 36.6 % (42.0-52.0); Hemoglobin 11.9 g/dL (14.0-18.0); Immature Granulocyte Absolute 0.07 K/mm3 (0.00-0.031); Immature Granulocyte Percent A 0.6 % (0-0.5); Lymphocytes Absolute Auto 1.85 K/mm3 (0.9-3.2); Lymphocytes Percent Auto 16.3 % (18.3-44.2); Mean Corpuscular HGB Conc 32.5 g/dl (32-36); Mean Corpuscular Hemoglobin 30.3 pg (26-34); Mean Corpuscular Volume 93.1 fl (80-100); Mean Platelet Volume 9.9 fl (7.4-10.4); Monocytes Absolute Auto 0.7 K/mm3 (0.1-0.6); Monocytes Percent Auto 6.4 % (2.6-8.5); Neutrophils Absolute Auto 8.7 K/mm3 (1.3-6.7); Neutrophils Percent Auto 76.3 % (45.5-73.1); Platelet Count Result 349 k/mm3 (150-375); Red Blood Count 3.93 M/mm3 (4.6-6.20); Red Cell Distribution Width 13.2 % (11.5-14.5); White Blood Count 11.3 K/mm3 (4.5-10.0)
[2023-03-18 05:55] LABS: Anion Gap 2 mmol/L (8-16); Blood Urea Nitrogen 11 mg/dL (9-20); Calcium 8.8 mg/dL (8.4-10.2); Carbon Dioxide 33 mmol/L (22-30); Chloride 100 mmol/L (98-107); Estimated CRCL calculation 235 ml/min; Estimated Glomerular Filt Rate > 60; Glucose 97 mg/dL (65-110); Sodium 135 mmol/L (137-145)
[2023-03-18] MEDS: ENOXAPARIN 40 MG/0.4 ML SYRINGE SUB-Q (07:58)
[2023-03-18] MEDS: SENNA/DOCUSATE SODIUM TABLET 2 TAB PO ×2 (07:58→17:10)
[2023-03-18] MEDS: polyethylene glycoL 3350 17 GM POWD.PACK PO (07:58)
[2023-03-18] MEDS: FAMOTIDINE 20 MG TABLET PO ×2 (07:58→20:06)
--- NOTE | 2023-03-18 09:37 | PM.PNORT ---
Progress Note: A&P Assessment and Plan (1) Ankle fracture, bimalleolar, closed: Qualifiers: Encounter type: initial encounter Laterality: left Qualified Code(s): S82.842A - Displaced bimalleolar fracture of left lower leg, initial encounter for closed fracture Code(s): S82.843A - Displaced bimalleolar fracture of unspecified lower leg, initial encounter for closed fracture Status: Acute Assessment and Plan: POD #1: Open Reduction internal fixation left ankle bimalleolar fracture, open reduction internal fixation left ankle syndesmosis-distal. Continue PT/OT. NWB LLE. Out of bed to chair. Ice/Elevate. Pain control. Keep splint c/d/i. Incentive spirometry. Dispo: Pending progress with PT/OT. Follow up in the outpatient orthopedic clinic arrnaged. Subjective Subjective Date/Time Seen: 03/18/23 09:37 Post Op day: 1 Principal diagnosis: Left Ankle Fx Interval history: POD #1: open Reduction internal fixation left ankle bimalleolar fracture, open reduction internal fixation left ankle syndesmosis-distal. Patient doing well. Pain well controlled. Awaiting PT/OT. Review of Systems Review of Systems: All systems reviewed & are unremarkable except as noted in HPI and below Exam Const: General: comfortable and no acute distress Resp: Effort & Inspection: normal respiratory effort Cardio: Rate: regular rate Rhythm: regular rhythm GI: GI Palp: Yes Soft to palpation, No Firmness to palpation present (GI) and No Tenderness to palpation present (GI) Neuro: Speech: normal speech Sensory Exam: normal sensation Extrem: Left lower extremity: knee Details: normal to inspection and normal ROM; no tenderness and no swelling, lower leg (splint c/d/i ), ankle (splint c/d/i ) and foot (moves toes, good capillary refill, sensation intact ) Objective Data Vital Signs Vital Signs: Vital Signs - 24 hr 03/17/23 10:28 03/17/23 12:27 03/17/23 12:42 Temperature 36.8 C 37.4 C Pulse Rate 89 106 H 104 H Respiratory Rate 18 20 21 H Blood Pressure 117/68 117/73 126/80 Pulse Oximetry 96 100 98 Oxygen Delivery Room Air Simple Face Mask Simple Face Mask Oxygen Flow Rate 6 4 03/17/23 13:00 03/17/23 13:15 03/17/23 13:30 Temperature Pulse Rate 105 H 108 H 98 Respiratory Rate 18 18 16 Blood Pressure 125/76 141/64 H 126/83 Pulse Oximetry 98 95 95 Oxygen Delivery Simple Face Mask Nasal Cannula Nasal Cannula Oxygen Flow Rate 4 3 3 03/17/23 14:00 03/17/23 14:15 03/17/23 14:45 Temperature 36.8 C 36.8 C 36.7 C Pulse Rate 99 102 H 98 Respiratory Rate 20 18 20 Blood Pressure 123/77 116/73 119/69 Pulse Oximetry 97 98 97 Oxygen Delivery Oxygen Flow Rate 03/17/23 15:36 03/17/23 19:36 03/17/23 23:21 Temperature 36.4 C L 36.4 C L 36.6 C Pulse Rate 92 91 81 Respiratory Rate 20 18 18 Blood Pressure 132/76 115/69 112/63 Pulse Oximetry 95 97 96 Oxygen Delivery Oxygen Flow Rate 03/18/23 03:36 Temperature 36.4 C Pulse Rate 82 Respiratory Rate 18 Blood Pressure 125/77 Pulse Oximetry 97 Oxygen Delivery Oxygen Flow Rate Intake/Output Intake/Output: Intake & Output 03/15/23 03/16/23 03/17/23 03/18/23 23:59 23:59 23:59 23:59 Intake Total 5349 330 6392 1050 Output Total 1200 1240 1475 1250 Balance 260 -320 265 -200 Meds/Results Medications: Active Medications Generic Name Dose Route Start Last Admin Trade Name Freq PRN Reason Stop Dose Admin Acetaminophen 650 mg 03/12/23 04:12 Acetaminophen 325 Mg Tablet PO Q4H PRN Mild Pain (1-3) or Fever Hydrocodone Bitart/Acetaminophen 2 tab 03/12/23 04:12 03/18/23 04:43 Hydrocodone/Acetaminophen (*Crx) 5-325 Mg Tablet PO 2 tab Q4H PRN Administration Pain Rated 7-10 Enoxaparin Sodium 40 mg 03/16/23 09:00 03/18/23 07:58 Enoxaparin 40 Mg/0.4 Ml Syringe SUB-Q 40 mg DAILY PAULINE Administration Famotidine 20 mg 03/17/23 21:00 03/18/23 07:58 Famotidine 20 Mg Tablet PO 20 m
--- NOTE | 2023-03-18 10:43 | PM.IMPN ---
Progress Note: A&P Assessment and Plan (1) Ankle fracture, bimalleolar, closed: Qualifiers: Encounter type: initial encounter Laterality: left Qualified Code(s): S82.842A - Displaced bimalleolar fracture of left lower leg, initial encounter for closed fracture Code(s): S82.843A - Displaced bimalleolar fracture of unspecified lower leg, initial encounter for closed fracture Status: Acute Assessment and Plan: Ankle fracture secondary to mechanical fall. Initial x-ray with bimalleolar fractures. Reduced in the ED and subsequent x-ray improved alignment of distal fibular fracture and worsened alignment of the medial malleolus fracture with new abnormal widening of medial aspect. Patient admitted and ortho consulted. Patient now POD #1 for OR/IF left ankle bimalleolar fracture with ORIF left ankle syndesmosis-distal. Tolerated the procedure well. Appreciate orthopedic surgery recommendation Continue with supportive care and pain management PT/OT per Orthopedic surgery recommendations Home when okay with ortho (2) Asthma: Code(s): J45.909 - Unspecified asthma, uncomplicated Status: Acute Assessment and Plan: Stable, no acute exacerbation (3) Morbid obesity with BMI of 60.0-69.9, adult: Code(s): E66.01 - Morbid (severe) obesity due to excess calories; Z68.44 - Body mass index [BMI] 60.0-69.9, adult Status: Acute Assessment and Plan: BMI 61. Long discussion about the benefits of leading a healthy lifestyle Plan DVT prophylaxis: Lovenox Code status: Full Subjective Date/time seen: 03/18/23 10:43 Interval history: 32yo male with a history of asthma, depression, morbid obesity who is seen in follow up for left ankle fracture. Pain tolerable. Better when ice applied and feels less tight. No CP or SOB. no calf pain. Exam Narrative: AF 97.6 125/77 82 18 97% ra Gen - NARD Chest - CTA anteriorly, nml RR. no wheezes CV - RRR S1/S2 Abd - Soft, obese, NT, Positive BS Ext - No right pedal edema. Left LE in soft cast that is not overly tight. Neuro - Alert and oriented. Normal sensation to the left toes. Able to move visible toes Psych - Nml mood and affect Skin - Warm and dry Objective Data Vital Signs Vital Signs: Vital Signs - 24 hr 06/12/23 12:27 03/17/23 12:42 03/17/23 13:00 Temperature 99.4 F Pulse Rate 106 H 104 H 105 H Respiratory Rate 20 21 H 18 Blood Pressure 117/73 126/80 125/76 Pulse Oximetry 100 98 98 Oxygen Delivery Simple Face Mask Simple Face Mask Simple Face Mask Oxygen Flow Rate 6 4 4 03/17/23 13:15 03/17/23 13:30 03/17/23 14:00 Temperature 98.2 F Pulse Rate 108 H 98 99 Respiratory Rate 18 16 20 Blood Pressure 141/64 H 126/83 123/77 Pulse Oximetry 95 95 97 Oxygen Delivery Nasal Cannula Nasal Cannula Oxygen Flow Rate 3 3 03/17/23 14:15 03/17/23 14:45 03/17/23 15:36 Temperature 98.2 F 98.1 F 97.5 F L Pulse Rate 102 H 98 92 Respiratory Rate 18 20 20 Blood Pressure 116/73 119/69 132/76 Pulse Oximetry 98 97 95 Oxygen Delivery Oxygen Flow Rate 03/17/23 19:36 03/17/23 23:21 03/18/23 03:36 Temperature 97.5 F L 97.9 F 97.6 F Pulse Rate 91 81 82 Respiratory Rate 18 18 18 Blood Pressure 115/69 112/63 125/77 Pulse Oximetry 97 96 97 Oxygen Delivery Oxygen Flow Rate 03/18/23 08:00 Temperature Pulse Rate Respiratory Rate Blood Pressure Pulse Oximetry Oxygen Delivery Room Air Oxygen Flow Rate Intake/Output Intake/Output: Intake & Output 03/15/23 03/16/23 03/17/23 03/18/23 23:59 23:59 23:59 23:59 Intake Total 5852 577 4928 1050 Output Total 1200 1240 1475 1250 Balance 260 -320 265 -200 Meds/Results Medications: Active Medications Generic Name Dose Route Start Last Admin Trade Name Freq PRN Reason Stop Dose Admin Acetaminophen 650 mg 03/12/23 04:12 Acetaminophen 325 Mg Tablet PO Q4H PRN Mild Pain (1-3) or Fever Hyd
[2023-03-18 11:36] VITALS: BP 115/67; PULSE 89; RESP 20; TEMP 37; O2SAT 99
[2023-03-18] MEDS: ACETAMINOPHEN 325 MG TABLET 650 MG PO (11:38)
--- NOTE | 2023-03-18 12:13 | PCPTNOTE ---
On 03/18/23, the student, [Edwige Bloom], provided care and completed [facility] documentation on this patient. I have reviewed the student's documentation and agree with the findings.
--- NOTE | 2023-03-18 13:51 | P.PNAN_ITS ---
Anes - Prog Note Post-Op Date/Time: 03/18/23 13:51 Cardiovascular status: normal Respiratory status: normal Airway patency: baseline Mental status: baseline Post-Op hydration status: normal Vital Signs: Last Vital Signs Temp 36.4 C 03/18/23 03:36 Pulse 82 03/18/23 03:36 Resp 18 03/18/23 03:36 BP 125/77 03/18/23 03:36 Pulse Ox 97 03/18/23 03:36 O2 Del Method Room Air 03/18/23 10:30 O2 Flow Rate 3 03/17/23 13:30 Pain Score (VAS): 12/13 I/O: Intake & Output 03/17/23 03/18/23 03/18/23 23:59 07:59 15:59 Intake Total 840 1050 720 Output Total 400 1250 Balance 440 -200 720 Laboratory Tests 03/18/23 05:08 03/18/23 05:08 03/18/23 05:08 WBC 11.3 H RBC 3.93 L Hgb 11.9 L Hct 36.6 L MCV 93.1 MCH 30.3 MCHC 32.5 RDW 13.2 Plt Count 349 MPV 9.9 Immature Gran % (Auto) 0.6 H Neut % (Auto) 76.3 H Lymph % (Auto) 16.3 L Williamson % (Auto) 6.4 Eos % (Auto) 0.1 Baso % (Auto) 0.3 Lymph # (Auto) 1.85 Williamson # (Auto) 0.7 H Eos # (Auto) 0.0 Baso # (Auto) 0.0 Abs Immat Gran (auto) 0.07 H Absolute Neuts (auto) 8.7 H Absolute Nucleated RBC 0.0 Nucleated RBC % 0.0 Sodium 135 L Potassium 4.0 Chloride 100 Carbon Dioxide 33 H Anion Gap 2 L BUN 11 Creatinine 0.70 Estim Creat Clear Calc 235 Estimated GFR > 60 Glucose 97 Calcium 8.8 Post-procedural complaints: none Patient Feedback: Patient satisfied with anesthetic care.
[2023-03-18 15:36] VITALS: BP 119/67; PULSE 91; RESP 20; TEMP 37.3; O2SAT 97
[2023-03-18 20:23] VITALS: BP 130/82; PULSE 86; RESP 16; TEMP 36.8; O2SAT 98
--- NOTE | 2023-03-19 11:40 | PCNWS ---
Weekly nutritional screen. Patient is tolerating current diet with adequate intake. No weight loss reported. No nutritional needs at this time.
[2023-03-19] MEDS: FAMOTIDINE 20 MG TABLET PO (20:24)
[2023-03-19 21:10] VITALS: O2SAT 97
[2023-03-19 21:20] VITALS: BP 117/63; PULSE 84; RESP 16; TEMP 36.5; O2SAT 96
--- NOTE | 2023-03-19 21:35 | PC.NURSE ---
Paper documentation exists on this patient due to [facility] downtime on 03/19/23 from 0030 to [1930] .
[2023-03-20] MEDS: HYDROcodone/acetaminophen (*CRX) 5-325 MG TABLET 2 TAB PO (04:59)
[2023-03-20 06:37] VITALS: BP 118/80; PULSE 81; RESP 14; TEMP 36.6; O2SAT 96
[2023-03-20] MEDS: ENOXAPARIN 40 MG/0.4 ML SYRINGE SUB-Q (08:05)
[2023-03-20] MEDS: SENNA/DOCUSATE SODIUM TABLET 2 TAB PO (08:05)
[2023-03-20] MEDS: FAMOTIDINE 20 MG TABLET PO (08:05)
[2023-03-20] MEDS: polyethylene glycoL 3350 17 GM POWD.PACK PO (08:05)
--- NOTE | 2023-03-20 09:45 | PM.EVENT ---
Event Note Event Note Event Note: Patient d/c home yesterday, d/c summary written in chart. Unsure why patient did not leave yesterday. Check CBC in a few days to monitor hgb and confirm leukocytosis is reactive and trends down.
--- NOTE | 2023-03-20 15:22 | PC.NURSE ---
Patient called stating that the pain medication that was written for him at discharge was on backorder at the pharmacy it was transcribed to. Patient was instructed to call Dr. Santana' office to let them know as MICHELLE Remy was the provider that ordered the medication and a provider will have to be the one to transcribe the narcotic to a different pharmacy. Patient was ok with that and stated he would call the office. He was provided with the office number.
== END 2023-03-20 12:23 | disposition home or self-care (01) | DRG 493 ==
LOC: ANHED 04:18 → ANH2MED 04:40
PROVIDERS: Orthopaedic Surgery; Physician Assistant; Admitting Provider Internal Medicine; Emergency Provider Emergency Medicine; Visit Provider Student in an Organized Health Care Education/Training Program
PROC: 0QSK06Z Reposition Left Fibula with Intramedullary Internal Fixation Device, Open Approach (ICD-10-PCS; principal; 2023-03-17 11:30)
DX: S82.432A Displaced oblique fracture of shaft of left fibula, initial encounter for closed fracture (principal); Z68.44 Body mass index [BMI] 60.0-69.9, adult; S82.52XA Displaced fracture of medial malleolus of left tibia, initial encounter for closed fracture; J45.909 Unspecified asthma, uncomplicated; E66.01 Morbid (severe) obesity due to excess calories; F32.A Depression, unspecified; W19.XXXA Unspecified fall, initial encounter
CPT/HCPCS: 27810; 36415; 73610; 80048; 80053; 85014; 85018; 85025; 85027; 97110; 97161; 97164; 97165; 97530; 97535; 99199; 99285; A9270; C1713; C1769; J0690; J1100; J1170; J1650; J1885; J2250; J2405; J2704; J3010; J3480; J7120